=== PATIENT | female | born 1985 | race African-American/Black ===

== ENCOUNTER 2020-03-22 19:50 | Emergency (ER) | payer MEDICARE, MEDICAID ==
[~2020-03-22] VITALS: Ht 162.6 cm; Wt 52.0 kg
[2020-03-22] MEDS ORDERED: MORPHINE SULFATE 4 MG/ML VIAL. IV ONE ×2 (20:30→22:00)
[2020-03-22] MEDS ORDERED: ONDANSETRON PF 4 MG/2 ML VIAL. IVP ONE (20:30)
[2020-03-22] MEDS ORDERED: IV NORMAL SALINE 1000ML BAG 1,000 ML IV ONE (20:30)
[2020-03-22 20:45] LABS: BASO # 0.2 x10^3/uL (0.0-0.2); BASO % 2 % (0-3); EOS # 0.3 x10^3/uL (0.0-0.7); EOS % 4 % (0-3); HEMATOCRIT 24.2 % (36.0-47.0); HEMOGLOBIN 8.5 g/dL (12.0-15.5); LYMPH # 1.4 x10^3/uL (1.0-4.8); LYMPH % 17 % (24-48); MEAN CORPUSCULAR HEMOGLOBIN 37 pg (25-35); MEAN CORPUSCULAR HGB CONC 35 g/dL (31-37); MEAN CORPUSCULAR VOLUME 104 fL (79-100); MONO # 1.2 x10^3/uL (0.0-1.1); MONO % 15 % (0-9); NEUT % 62 % (31-73); PLATELET COUNT 517 x10^3/uL (140-400); RED BLOOD COUNT 2.33 x10^6/uL (3.50-5.40); RED CELL DISTRIBUTION WIDTH 20.8 % (11.5-14.5); WHITE BLOOD COUNT 8.1 x10^3/uL (4.0-11.0)
[2020-03-22 20:56] LABS: PROTHROMBIN TIME PATIENT 14.4 SEC (11.7-14.0)
[2020-03-22] MEDS ORDERED: diphenhydrAMINE 50 MG/ML VIAL IVP ONE (21:00)
[2020-03-22 21:23] LABS: PLT ESTIMATE INCREASED (ADEQUATE)
[2020-03-22 21:26] LABS: ANISOCYTOSIS MOD; HOWELL-JOLLY BODIES PRESENT; PAPPENHEIMER BODIES PRESENT; POLYCHROMASIA SLIGHT; SICKLE CELLS FEW; TARGET CELLS FEW
[2020-03-22 21:36] LABS: CALCIUM 8.3 mg/dL (8.5-10.1); CREATININE 0.9 mg/dL (0.6-1.0); GFR 86.2; POTASSIUM 4.1 mmol/L (3.5-5.1)
[2020-03-22 21:42] LABS: ALBUMIN 4.1 g/dL (3.4-5.0); ALBUMIN/GLOBULIN RATIO 1.2 (1.0-1.7); TOTAL PROTEIN 7.6 g/dL (6.4-8.2)
--- NOTE | 2020-03-22 22:28 | RAD ---
Exam: Chest 2 views INDICATION: Chest pain TECHNIQUE: Frontal and lateral views the chest Comparisons: None FINDINGS: The cardiomediastinal silhouette and pulmonary vessels are within normal limits. The lung and pleural spaces are clear. IMPRESSION: No acute cardiopulmonary process. Electronically signed by: Atif Velasquez MD (03/22/2020 10:25 PM) [id number]
[2020-03-22 22:53] VITALS: BP 97/53
--- NOTE | 2020-03-22 23:04 | PHYS DOC ---
Past Medical History Past Medical History: Sickle Cell Disease Additional Past Medical Histor: stroke x 2 Past Surgical History: Hip Replacement Additional Past Surgical Histo: brain shunt, hip replacement x 2 Smoking Status: Never Smoker Alcohol Use: None General Adult EDM: Chief Complaint: PAIN CONTROL HPI: HPI: Patient is a 34 year old female who presents to the ED with a chief complaint of sickle cell pain. Patient states that the pain started earlier today. Patient states that the pain is in her chest, bilateral lower extremities. Patient states that she takes hydrocodone for her pain and is seen at the sickle cell clinic in [place]. Patient denies fever, chills, nausea, vomiting, diarrhea, shortness of breath. Patient denies exposure to anyone with c oronavirus. Review of Systems: Review of Systems: Constitutional: Denies fever or chills. [] Eyes: Denies change in visual acuity. [] HENT: Denies nasal congestion or sore throat. [] Respiratory: Complains of chest pain [] Cardiovascular: Denies chest pain or edema. [] GI: Denies abdominal pain, nausea, vomiting, bloody stools or diarrhea. [] : Denies dysuria. [] Musculoskeletal: Complains of bilateral lower extremity pain Neurologic: Denies headache, focal weakness or sensory changes. [] Heart Score: Risk Factors: Risk Factors: DM, Current or recent (<one month) smoker, HTN, HLP, family history of CAD, obesity. Risk Scores: Score 0 - 3: 2.5% MACE over next 6 weeks - Discharge Home Score 4 - 6: 20.3% MACE over next 6 weeks - Admit for Clinical Observation Score 7 - 10: 72.7% MACE over next 6 weeks - Early Invasive Strategies Current Medications: Current Medications Medications (Trade) Dose Ordered Sig/Saul Start Time Stop Time Status Last Admin Dose Admin Diphenhydramine HCl (Benadryl) 25 mg 1X ONCE 03/22/20 21:00 03/22/20 21:01 DC 03/22/20 20:54 25 MG Morphine Sulfate (Morphine Sulfate) 4 mg 1X ONCE 03/22/20 22:00 03/22/20 22:01 DC 03/22/20 21:43 4 MG Ondansetron HCl (Zofran) 4 mg 1X ONCE 03/22/20 20:30 03/22/20 20:35 DC 03/22/20 20:42 4 MG Sodium Chloride 1,000 ml @ 1,000 mls/hr 1X ONCE 03/22/20 20:30 03/22/20 21:29 DC 03/22/20 20:42 1,000 MLS/HR Allergies: Allergies: Allergies Coded Allergies Type Severity Reaction Last Updated Verified No Known Drug Allergies 03/22/20 No Physical Exam: PE: Constitutional: Well developed, well nourished, no acute distress, non-toxic appearance. [] HENT: Normocephalic, atraumatic Eyes: EOMI Neck: Normal range of motion, Supple Cardiovascular:Heart rate regular rhythm Lungs & Thorax: Bilateral breath sounds clear to auscultation [] Abdomen: Bowel sounds normal, soft, no tenderness Extremities: No tenderness, ROM intact Neurologic: Alert and oriented X 3 Current Patient Data: Labs: Laboratory Tests Test 03/22/20 20:17 03/22/20 21:10 White Blood Count 8.1 x10^3/uL (4.0-11.0) Red Blood Count 2.34 x10^6/uL (3.50-5.70) L Hemoglobin 8.5 g/dL (12.0-15.5) L Hematocrit 24.2 % (36.0-47.0) L Mean Corpuscular Volume 104 fL (79-100) H Mean Corpuscular Hemoglobin 37 pg (25-35) H Mean Corpuscular Hemoglobin Concent 35 g/dL (31-37) Red Cell Distribution Width 20.8 % (11.5-14.5) H Platelet Count 517 x10^3/uL (140-400) H Neutrophils (%) (Auto) 62 % (31-73) Lymphocytes (%) (Auto) 17 % (24-48) L Monocytes (%) (Auto) 15 % (0-9) H Eosinophils (%) (Auto) 4 % (0-3) H Basophils (%) (Auto) 2 % (0-3) Neutrophils # (Auto) 5.0 x10^3/uL (1.8-7.7) Lymphocytes # (Auto) 1.4 x10^3/uL (1.0-4.8) Monocytes # (Auto) 1.2 x10^3/uL (0.0-1.1) H Eosinophils # (Auto) 0.3 x10^3/uL (0.0-0.7) Basophils # (Auto) 0.2 x10^3/uL (0.0-0.2) Platelet Estimate Increased (ADEQUATE) Polychromasia Slight Anisocytosis Mod Pappenheimer Bodies Present Sickle Cells Few Target Cells Few [place] Bodies Present Absolute Reticulocyte Count 0.078 x10^6/uL (0.020-0.120) Percent Reticulocyte Count 3.3 % (0.5-2.3) H Immature Reticulocyte Fraction 0.71 (0.20-0.60) H Prothrombin Time 14.4 SEC (11.7-14.0) H Prothrombin Time INR 1.2 (0.8-1.1) H Sodium Level 138 mmol/L (136-145) Potassium Level 4.1 mmol/L (3.5-5.1) Chloride Level 106 mmol/L (98-107) Carbon Dioxide Level 21 mmol/L (21-32) Anion Gap 11 (6-14) Blood Urea Nitrogen 13 mg/dL (7-20) Creatinine 0.9 mg/dL (0.6-1.0) Estimated GFR (Cockcroft-Gault) 86.2 BUN/Creatinine Ratio 14 (6-20) Glucose Level 99 mg/dL (70-99) Lactic Acid Level 0.9 mmol/L (0.4-2.0) Calcium Level 8.3 mg/dL (8.5-10.1) L Total Bilirubin 1.0 mg/dL (0.2-1.0) Aspartate Amino Transferase (AST) 61 U/L (15-37) H Alanine Aminotransferase (ALT) 50 U/L (14-59) Alkaline Phosphatase 143 U/L (46-116) H Lactate Dehydrogenase 583 U/L (81-234) H Total Protein 7.6 g/dL (6.4-8.2) Albumin 4.1 g/dL (3.4-5.0) Albumin/Globulin Ratio 1.2 (1.0-1.7) Lipase 109 U/L (73-393) Laboratory Tests 03/22/20 20:17 Laboratory Tests 03/22/20 21:10 Vital Signs: Vital Signs Date Time Temp Pulse Resp B/P (MAP) Pulse Ox O2 Delivery O2 Flow Rate FiO2 03/22/20 21:43 16 99 Room Air 03/22/20 21:30 88 03/22/20 19:50 98.7 108/67 (81) 98.7 EKG: EKG: [] Radiology/Procedures: Radiology/Procedures: [] Impression: CXR IMPRESSION: No acute cardiopulmonary process. Course & Med Decision Making: Course & Med Decision Making Pertinent Labs and Imaging studies reviewed. (See chart for details) Labs show that patient has chronic anemia. Chest x-ray does not show any acute injury or thoracic process. Reticulocyte count is not elevated. Patient is received 2 doses of morphine 4 mg IV. On recheck patient states that her pain is controlled. Patient refused EKG. Patient also does not want troponin to be drawn. Patient was to be discharged home for outpatient follow-up. Discussed results and plan of care with patient. Patient is instructed to follow up with PCP in one to 2 days. Appropriate discharge instructions given to patient to return to the ED or to seek immediate medical evaluation. Patient is instructed to return to the ED if symptoms worsen or if any concerns. Dragon Disclaimer: Dragmadelaine Disclaimer: This electronic medical record was generated, in whole or in part, using a voice recognition dictation system. Departure Departure Impression: Primary Impression: Sickle cell anemia with pain Disposition: HOME, SELF-CARE Condition: STABLE Referrals: NO PCP (PCP) Patient Instructions: Sickle Cell Anemia, Sickle Cell Pain Crisis Additional Instructions: Discussed results and plan of care with patient. Patient is instructed to follow up with PCP in one to 2 days. Appropriate discharge instructions given to patient to return to the ED or to seek immediate medical evaluation. Patient is instructed to return to the ED if symptoms worsen or if any concerns. Justicifation of Admission Dx: Justifications for Admission: Justification of Admission Dx: JOSH Sinclair DO Mar 22, 2020 23:04
== END 2020-03-22 23:20 | disposition home or self-care (01) ==
LOC: ER 19:50
DX: D57.00 Hb-SS disease with crisis, unspecified (principal); R07.89 Other chest pain; M79.604 Pain in right leg; M79.605 Pain in left leg
CPT/HCPCS: 36415; 71046; 80053; 83605; 83615; 83690; 85025; 85045; 85610; 96374; 96375; 96376; 99285; J1200; J2270; J2405; J7030

== ENCOUNTER 2020-03-23 07:15 | Emergency (ER) | payer MEDICARE, MEDICAID ==
[~2020-03-23] VITALS: Ht 162.6 cm; Wt 55.0 kg
[2020-03-23] MEDS ORDERED: IV NORMAL SALINE 1000ML BAG 1,000 ML IV ONE (08:30)
[2020-03-23] MEDS ORDERED: MORPHINE SULFATE 10 MG/ML VIAL. IV ONE ×2 (08:45→10:30)
--- NOTE | 2020-03-23 09:10 | PHYS DOC ---
Past Medical History Past Medical History: Sickle Cell Disease Additional Past Medical Histor: stroke x 2 Past Surgical History: Hip Replacement Additional Past Surgical Histo: brain shunt, hip replacement x 2 Smoking Status: Never Smoker Alcohol Use: Occasionally General Adult EDM: Chief Complaint: PAIN CONTROL HPI: HPI: Patient is a 34 year old female who presents with sickle cell pain crisis after the last couple of days. Patient was seen in the emergency room last night for the same pain. Pain improved after treatment in the emergency room. She sat in the waiting room for several hours waiting for a cab but never came. She states that because of her sickle cell pain she gets very stiff and painful when she has to sit for long periods of time and gets cold. She has been taking her medications as prescribed. She denies any new symptoms. She did turn down an EKG last night but states that she is happy to get one today. Review of Systems: Review of Systems: General: Denies fever, chills, sweats, fatigue Eyes: Denies drainage, blurred vision, eye redness HENT: Denies rhinorrhea, sore throat, earache Respiratory: Denies cough, shortness of breath, wheezing Cardiac: Denies edema, palpitations. Reports chest pain GI: Denies abdominal pain, Nausea, vomiting MSK: Denies back pain, neck pain reports hip pain Skin: Denies rash, jaundice Neuro: Denies headache, dizziness Psychiatric: Denies SI/HI Heart Score: Risk Factors: Risk Factors: DM, Current or recent (<one month) smoker, HTN, HLP, family history of CAD, obesity. Risk Scores: Score 0 - 3: 2.5% MACE over next 6 weeks - Discharge Home Score 4 - 6: 20.3% MACE over next 6 weeks - Admit for Clinical Observation Score 7 - 10: 72.7% MACE over next 6 weeks - Early Invasive Strategies Current Medications: Current Medications Medications (Trade) Dose Ordered Sig/Saul Start Time Stop Time Status Last Admin Dose Admin Morphine Sulfate (Morphine Sulfate) 5 mg 1X ONCE 03/23/20 08:45 03/23/20 08:46 DC Sodium Chloride 1,000 ml @ 40 mls/hr 1X ONCE 03/23/20 08:30 03/24/20 09:29 Allergies: Allergies: Allergies Coded Allergies Type Severity Reaction Last Updated Verified No Known Drug Allergies 03/22/20 No Physical Exam: PE: General: Awake, alert, NAD. Well Nourished, well hydrated. Cooperative HEENT: Atraumatic, EOMI, PERRL, airway patent, moist oral mucosa Neck: Supple, trachea midline Respiratory: CTA bilaterally, normal effort, no wheezing/crackles CV: RRR, no murmur, cap refill <2 GI: Soft, nondistended, nontender, no masses MSK: No obvious deformities Skin: Warm, dry, intact Neuro: A&O x3, speech NL, sensory and motor grossly intact, no focal deficits Psych: Normal affect, normal mood, not suicidal or homicidal Current Patient Data: Vital Signs: Vital Signs Date Time Temp Pulse Resp B/P (MAP) Pulse Ox O2 Delivery O2 Flow Rate FiO2 720 08:07 97.5 91 18 115/56 (75) 98 Room Air 97.5 EKG: EKG: [] Radiology/Procedures: Radiology/Procedures: [] Course & Med Decision Making: Course & Med Decision Making Pertinent Labs and Imaging studies reviewed. (See chart for details) Patient is a 34-year-old female with a past medical history of sickle cell who presents to the Emergency Room complaining of sickle cell pain consistent with a sickle cell crisis. On exam, patient is well-appearing. Patient is having pain in her hips and chest. Patient does have chest pain and will need a chest x-ray and EKG. Patient does not have priapism, focal neurologic deficits, fever, hypoxia, hypotension. CBC, retic count, CMP, UA were ordered to evaluate for aplastic crisis and precipitating factors of a crisis including infection, acidosis, dehydration. Patient was given morphine and fluids for symptoms upon arrival. Patient has had 2 emergency Room visits for sickle cell crisis in the last year. Work up was reviewed and reveals stable labs. Hemoglobin is slightly lower but this is likely due to the fluid she received last night and this morning. On reevaluation, pain is better. Patient is requesting IV Benadryl and multiple doses of pain medication. I have discussed with her that I will give her oral Benadryl and 1 more dose of pain medicine. Patient does not appear to be in any acute distress. Patient's test results and vitals while in the ED were fully reviewed and discussed with the patient. Patient is stable and at this time does not need admission to the hospital. We have discussed strict return precautions and the importance of following up with their Primary Care Physician. Patient stated understanding and was given an opportunity to ask any questions. Patient is in agreement with plan. Jannet Disclaimer: Jannet Disclaimer: This electronic medical record was generated, in whole or in part, using a voice recognition dictation system. Departure Departure Impression: Primary Impression: Sickle cell anemia Disposition: HOME, SELF-CARE Condition: GOOD Referrals: NO PCP (PCP) Patient Instructions: Sickle Cell Pain Crisis Justicifation of Admission Dx: Justifications for Admission: Justification of Admission Dx: No LEANA TOVAR MD Mar 23, 2020 09:10
[2020-03-23 10:07] LABS: BASO # 0.1 x10^3/uL (0.0-0.2); BASO % 2 % (0-3); EOS # 0.2 x10^3/uL (0.0-0.7); EOS % 3 % (0-3); HEMATOCRIT 22.9 % (36.0-47.0); HEMOGLOBIN 7.9 g/dL (12.0-15.5); LYMPH # 1.3 x10^3/uL (1.0-4.8); LYMPH % 18 % (24-48); MEAN CORPUSCULAR HEMOGLOBIN 36 pg (25-35); MEAN CORPUSCULAR HGB CONC 34 g/dL (31-37); MEAN CORPUSCULAR VOLUME 105 fL (79-100); MONO # 0.9 x10^3/uL (0.0-1.1); MONO % 13 % (0-9); NEUT # 4.7 x10^3/uL (1.8-7.7); NEUT % 64 % (31-73); PLATELET COUNT 459 x10^3/uL (140-400); RED BLOOD COUNT 2.19 x10^6/uL (3.50-5.40); RED CELL DISTRIBUTION WIDTH 20.7 % (11.5-14.5); WHITE BLOOD COUNT 7.3 x10^3/uL (4.0-11.0)
[2020-03-23] MEDS ORDERED: diphenhydrAMINE HCL 25 MG CAPSULE PO ONE (11:15)
[2020-03-23 11:52] LABS: PLT ESTIMATE INCREASED (ADEQUATE)
[2020-03-23 12:01] VITALS: BP 98/53
[2020-03-23 12:02] LABS: ANISOCYTOSIS PRESENT; HOWELL-JOLLY BODIES PRESENT; HYPOCHROMIA SLIGHT; PAPPENHEIMER BODIES PRESENT; POIKILOCYTOSIS PRESENT; SICKLE CELLS PRESENT; TARGET CELLS PRESENT
--- NOTE | 2020-03-25 07:01 | EKG ---
[facility] [address] [place] [address] Test Date: 2020-03-23 Test Time: 08:34:29 Pat Name: ROMA AGUILAR Department: Room: Gender: F Heeler Machine: : 1985 Requested By: LEANA TOVAR Order Number: [id number] Reading MD: Measurements Intervals [place] Rate: 78 P: 58 MO: 122 QRS: 55 QRSD: 86 T: 55 QT: 408 QTc: 469 Interpretive Statements SINUS RHYTHM QRS(T) CONTOUR ABNORMALITY CONSIDER ANTEROLATERAL MYOCARDIAL DAMAGE T ABNORMALITY IN ANTEROSEPTAL LEADS ABNORMAL ECG RI6.01 No previous ECG available for comparison
== END 2020-03-23 12:01 | disposition home or self-care (01) ==
LOC: ER 07:15
DX: D57.1 Sickle-cell disease without crisis (principal); R07.89 Other chest pain; M25.551 Pain in right hip; M25.552 Pain in left hip
CPT/HCPCS: 36415; 85025; 85045; 93005; 96374; 96376; 99284; J2270; J7030; Q0163

== ENCOUNTER 2020-04-12 11:12 | Observation (INO) | payer MEDICARE, MEDICAID ==
[~2020-04-12] VITALS: Ht 162.6 cm; Wt 56.4 kg
[2020-04-12] MEDS ORDERED: MORPHINE SULFATE 4 MG/ML VIAL. IV ONE ×2 (12:15→14:45)
[2020-04-12] MEDS ORDERED: ONDANSETRON PF 4 MG/2 ML VIAL. IVP ONE (12:15)
[2020-04-12] MEDS ORDERED: diphenhydrAMINE 50 MG/ML VIAL IVP ONE ×2 (12:15→14:45)
[2020-04-12 12:24] LABS: BASO # 0.1 x10^3/uL (0.0-0.2); BASO % 1 % (0-3); CALCIUM 8.6 mg/dL (8.5-10.1); CREATININE 0.8 mg/dL (0.6-1.0); EOS # 0.2 x10^3/uL (0.0-0.7); EOS % 3 % (0-3); GFR 98.8; HEMOGLOBIN 7.3 g/dL (12.0-15.5); LYMPH # 1.9 x10^3/uL (1.0-4.8); LYMPH % 24 % (24-48); MEAN CORPUSCULAR HEMOGLOBIN 39 pg (25-35); MEAN CORPUSCULAR HGB CONC 36 g/dL (31-37); MEAN CORPUSCULAR VOLUME 109 fL (79-100); MONO % 13 % (0-9); NEUT # 4.6 x10^3/uL (1.8-7.7); NEUT % 58 % (31-73); PLATELET COUNT 393 x10^3/uL (140-400); POTASSIUM 3.8 mmol/L (3.5-5.1); RED BLOOD COUNT 1.88 x10^6/uL (3.50-5.40); RED CELL DISTRIBUTION WIDTH 26.7 % (11.5-14.5); WHITE BLOOD COUNT 7.9 x10^3/uL (4.0-11.0)
[2020-04-12 12:30] LABS: ALBUMIN 3.8 g/dL (3.4-5.0); ALBUMIN/GLOBULIN RATIO 1.1 (1.0-1.7); TOTAL BILIRUBIN 0.6 mg/dL (0.2-1.0); TOTAL PROTEIN 7.3 g/dL (6.4-8.2)
[2020-04-12 12:40] LABS: HEMATOCRIT 20.5 % (36.0-47.0)
[2020-04-12] MEDS ORDERED: diphenhydrAMINE 50 MG/ML VIAL IM ONE (12:45)
[2020-04-12] MEDS ORDERED: MORPHINE SULFATE 4 MG/ML VIAL. IM ONE ×2 (12:45→14:00)
[2020-04-12] MEDS ORDERED: ONDANSETRON ODT 4 MG TAB.RAPDIS. PO ONE (12:45)
--- NOTE | 2020-04-12 13:25 | PHYS DOC ---
Past Medical History Past Medical History: Sickle Cell Disease Additional Past Medical Histor: stroke x 2 Past Surgical History: Hip Replacement Additional Past Surgical Histo: brain shunt, hip replacement x 2 Smoking Status: Never Smoker Alcohol Use: Occasionally General Adult EDM: Chief Complaint: PAIN CONTROL HPI: HPI: Patient is a 34 year old female who presents with generalized body aches and pains that she associates with her normal sickle cell pains, patient states that she has not taken anything for pain today, she rates her pain a 10/10 pain scale. Patient reports she woke up with her pain this morning noting that it was mostly in her thighs and low back, patient states this is where her sickle cell pain usually manifests from. Patient denies any fever or chills, visual changes, nasal congestion, cough or shortness of breath. She denies any chest pain, or peripheral edema. Patient denies any abdominal pain, nausea, vomiting, diarrhea, constipation. Patient denies any problems urinating, patient denies any pain in her joints. The skin rashes, headaches, focal weaknesses or sensory changes. Patient denies any swelling of her glands, denies any recent life changes depressions or anxieties, patient denies any homicidal suicidal ideations. Patient states that she gets some pain control she should be okay. Review of Systems: Review of Systems: Constitutional: Denies fever or chills. Patient denies exposure to COVID-19. Eyes: Denies change in visual acuity. HENT: Denies nasal congestion or sore throat. Respiratory: Denies cough or shortness of breath. Cardiovascular: Denies chest pain or edema. GI: Denies abdominal pain, nausea, vomiting, bloody stools or diarrhea. : Denies dysuria. Musculoskeletal: Patient denies pain in her joints, however does complain of generalized body aches that she associates with her sickle cell pain patient states is mostly in her low back and thighs. Integument: Denies rash. Neurologic: Denies headache, focal weakness or sensory changes. Lymphatic: Denies swollen glands. Psychiatric: Denies depression or anxiety. Patient denies HI SI. Heart Score: Risk Factors: Risk Factors: DM, Current or recent (<one month) smoker, HTN, HLP, family history of CAD, obesity. Risk Scores: Score 0 - 3: 2.5% MACE over next 6 weeks - Discharge Home Score 4 - 6: 20.3% MACE over next 6 weeks - Admit for Clinical Observation Score 7 - 10: 72.7% MACE over next 6 weeks - Early Invasive Strategies Family History: Family History: Patient denies any family history significant to this visit. Current Medications: Current Medications Medications (Trade) Dose Ordered Sig/Saul Start Time Stop Time Status Last Admin Dose Admin Diphenhydramine HCl (Benadryl) 25 mg 1X ONCE 04/12/20 12:45 04/12/20 12:46 DC 04/12/20 12:49 25 MG Morphine Sulfate (Morphine Sulfate) 4 mg 1X ONCE 04/12/20 12:45 04/12/20 12:46 DC 04/12/20 12:49 4 MG Ondansetron HCl (Zofran Odt) 4 mg 1X ONCE 04/12/20 12:45 04/12/20 12:46 DC 04/12/20 12:48 4 MG Ondansetron HCl (Zofran) 4 mg 1X ONCE 04/12/20 12:15 04/12/20 12:42 DC Allergies: Allergies: Allergies Coded Allergies Type Severity Reaction Last Updated Verified No Known Drug Allergies 03/22/20 No Physical Exam: PE: Constitutional: Well developed, well nourished, no acute distress, non-toxic appearance. Patient's complaints of pain are far out of proportion to physical findings. HENT: Normocephalic, atraumatic, bilateral external ears normal, oropharynx moist, no oral exudates, nose normal. Eyes: PERRLA, EOMI, conjunctiva normal, no discharge. Pupils 4 mm. Neck: Normal range of motion, no tenderness, supple, no stridor. Cardiovascular:Heart rate regular rhythm, no murmur heart sounds S1-S2, no abnormalities per auscultation Lungs & Thorax: Bilateral breath sounds clear to auscultation all lung heck. Abdomen: Bowel sounds normal all 4 quadrants, soft, no tenderness, no masses, no pulsatile masses. Skin: Warm, dry, no erythema, no rash. Back: No tenderness, no CVA tenderness. Extremities: No tenderness to palpation, no cyanosis, no clubbing, ROM intact, patient does report pain when moving extremities, no edema. Neurologic: Alert and oriented X 3, normal motor function, normal sensory function, no focal deficits noted. Psychologic: Affect normal, judgement normal, mood normal. Current Patient Data: Labs: Laboratory Tests Test 04/12/20 11:45 04/12/20 12:10 POC Urine HCG, Qualitative Hcg negative (Negative) White Blood Count 7.9 x10^3/uL (4.0-11.0) Red Blood Count 1.88 x10^6/uL (3.50-5.40) L Hemoglobin 7.3 g/dL (12.0-15.5) L Hematocrit 20.5 % (36.0-47.0) *L Mean Corpuscular Volume 109 fL (79-100) H Mean Corpuscular Hemoglobin 39 pg (25-35) H Mean Corpuscular Hemoglobin Concent 36 g/dL (31-37) Red Cell Distribution Width 26.7 % (11.5-14.5) H Platelet Count 393 x10^3/uL (140-400) Neutrophils (%) (Auto) 58 % (31-73) Lymphocytes (%) (Auto) 24 % (24-48) Monocytes (%) (Auto) 13 % (0-9) H Eosinophils (%) (Auto) 3 % (0-3) Basophils (%) (Auto) 1 % (0-3) Neutrophils # (Auto) 4.6 x10^3/uL (1.8-7.7) Lymphocytes # (Auto) 1.9 x10^3/uL (1.0-4.8) Monocytes # (Auto) 1.0 x10^3/uL (0.0-1.1) Eosinophils # (Auto) 0.2 x10^3/uL (0.0-0.7) Basophils # (Auto) 0.1 x10^3/uL (0.0-0.2) Platelet Estimate Pending Sodium Level 141 mmol/L (136-145) Potassium Level 3.8 mmol/L (3.5-5.1) Chloride Level 106 mmol/L (98-107) Carbon Dioxide Level 25 mmol/L (21-32) Anion Gap 10 (6-14) Blood Urea Nitrogen 7 mg/dL (7-20) Creatinine 0.8 mg/dL (0.6-1.0) Estimated GFR (Cockcroft-Gault) 98.8 BUN/Creatinine Ratio 9 (6-20) Glucose Level 94 mg/dL (70-99) Calcium Level 8.6 mg/dL (8.5-10.1) Total Bilirubin 0.6 mg/dL (0.2-1.0) Aspartate Amino Transferase (AST) 29 U/L (15-37) Alanine Aminotransferase (ALT) 26 U/L (14-59) Alkaline Phosphatase 115 U/L (46-116) Total Protein 7.3 g/dL (6.4-8.2) Albumin 3.8 g/dL (3.4-5.0) Albumin/Globulin Ratio 1.1 (1.0-1.7) Laboratory Tests 04/12/20 12:10 Laboratory Tests 04/12/20 12:10 Vital Signs: Vital Signs Date Time Temp Pulse Resp B/P (MAP) Pulse Ox O2 Delivery O2 Flow Rate FiO2 04/12/20 12:49 16 97 Room Air 04/12/20 11:15 98.2 91 129/67 (87) 98.2 EKG: EKG: [] Radiology/Procedures: Radiology/Procedures: [] Course & Med Decision Making: Course & Med Decision Making Pertinent Labs and Imaging studies reviewed. (See chart for details) 34-year-old female with history of sickle cell disease presents to the ER with complaints of body aches and pains consistent with her sickle cell. Patient is complaints of pain are far out of proportion to physical findings. Patient initially stated that she wanted to be admitted to the hospital, stating that she used to be seen at [facility] and has recently changed her sickle cell care to [facility]. Patient was giving IM morphine and Benadryl for pain, patient states her pain about 10-10 did not decrease with tho se medicines. Upon reexamination of the patient and discussed with possible admit for pain control, patient stated that she is out of her 15 mg OxyContin's at home and states if she was given a prescription she would be able to go home and manage her pain, seeing her sickle cell physician at [place] on Tuesday. Discussed with patient the usage of the emergency department for pain control, and that patient should follow-up with her pain management/sickle cell physician for these types of problems. Discharge plan to send home with 10 count 15 mg OxyContin's, have patient follow-up with her sickle cell physician at [facility] on Tuesday, patient was amenable to this discharge planning, had no further questions or concerns patient discharged home. Upon completing discharge instructions, I was approached by ED nurse who said patient no longer wants to be discharged home and wanted speak to me. Upon reexamination of patient, patient was agreeable to allow me to start her IV and give her fluids with the plan to discharge to home after a 1000 cc bolus of normal saline and additional 4 mg of morphine and an additional 25 mg of Benadryl were given IV. However, patient states that her pain remains a 10 out of 10 and she now wishes to be admitted to the hospital. Discussed this case with HIM[facility] Dr. Fulton who was agreeable to admit patient under observation and pain control. Jannet Disclaimer: Jannet Disclaimer: This electronic medical record was generated, in whole or in part, using a voice recognition dictation system. Departure Departure Impression: Primary Impression: Sickle cell anemia with pain Additional Impression: Prescription refill Disposition: HOME, SELF-CARE Condition: GOOD Referrals: NO PCP (PCP) Patient Instructions: Sickle Cell Pain Crisis Justicifation of Admission Dx: Justifications for Admission: Justification of Admission Dx: Yes Comments: INTRACTABLE SICKLE CELL PAIN KELLEN VILLATORO APRN Apr 12, 2020 13:25
[2020-04-12 14:40] LABS: PLT ESTIMATE ADEQUATE (ADEQUATE)
[2020-04-12 14:41] LABS: ANISOCYTOSIS MARKED; MICROCYTOSIS SLIGHT
[2020-04-12 14:44] LABS: POLYCHROMASIA OCCASIONAL
[2020-04-12 14:45] LABS: SCHISTOCYTES OCC; SICKLE CELLS MOD; TARGET CELLS OCC
[2020-04-12] MEDS ORDERED: IV NORMAL SALINE 1000ML BAG 1,000 ML IV ONE (14:45)
[2020-04-12 14:46] LABS: POIKILOCYTOSIS MOD
[2020-04-12] MEDS ORDERED: DOCUSATE SODIUM 100 MG CAPSULE. PO PRN (17:15)
[2020-04-12] MEDS ORDERED: cloNIDine HCL 0.1 MG TABLET PO PRN (17:15)
[2020-04-12] MEDS ORDERED: ACETAMINOPHEN 325 MG TABLET. PO PRN (17:15)
[2020-04-12] MEDS ORDERED: ONDANSETRON PF 4 MG/2 ML VIAL. IV PRN ×2 (17:15)
[2020-04-12] MEDS ORDERED: guaiFENesin ORAL 200 MG/10 ML LIQUID. PO PRN (17:15)
[2020-04-12] MEDS ORDERED: IV RINGERS,LACTATED 1000ML 1,000 ML IV ONE (17:15)
[2020-04-12] MEDS ORDERED: ALBUTEROL SULFATE 2.5 MG/3 ML NEBU. NEB PRN (17:15)
[2020-04-12] MEDS ORDERED: CALAMINE/ZINC OXIDE TOPICAL SUSPENSION 177ML BOTTLE. TP PRN (19:15)
[2020-04-12] MEDS ORDERED: hydrOXYzine 10 MG TABLET PO PRN (19:15)
[2020-04-12] MEDS ORDERED: diphenhydrAMINE ORAL ELIXIR 12.5 MG/5 ML ML PO ONE (19:15)
[2020-04-12] MEDS: MORPHINE SULFATE 4 MG/ML VIAL. IV PRN ×2 (19:27→21:25)
[2020-04-12 20:33] VITALS: BP 114/66
[2020-04-12] MEDS ORDERED: ENOXAPARIN 40 MG/0.4 ML SYRINGE. SQ SCH (21:00)
[2020-04-12] MEDS ORDERED: ZOLPIDEM 5 MG TABLET. PO PRN (21:00)
[2020-04-12] MEDS ORDERED: ASPI81TA59 PO (21:04)
[2020-04-12] MEDS ORDERED: FLUO40CA9 PO (21:04)
[2020-04-12] MEDS ORDERED: HYDR500C16 PO (21:04)
[2020-04-12] MEDS ORDERED: VITA1TAB31 PO (21:04)
[2020-04-12] MEDS ORDERED: MULT-735 PO (21:04)
[2020-04-12] MEDS ORDERED: TRAZ-123 PO (21:04)
[2020-04-12] MEDS ORDERED: OXYC20TA PO (21:04)
--- NOTE | 2020-04-12 21:43 | PDOC1 ---
History and Physical Date of Admission Date of Admission 04/12/2020 Identification/Chief Complaint Chief Complaint I am hurting all over Source Source: Chart review, Patient History of Present Illness History of Present Illness Patient is a 34-year-old female with past medical history of sickle cell anemia who has been in her usual state of health until today when she woke up and had excruciating pain that she describes as "all over". The patient denies any recent infections no cold-like symptoms she denies chest pain no shortness of breath has been reported, no palpitations no nausea vomiting or diarrhea has been reported. Of note is that the patient apparently is in the process of changing care from his pipeman from 1 institution to another the details are certainly obscure. Patient is quite adamant about her pain medications and how she feels like her doctors are not understanding how to take care of her pain. She seems to be in no acute distress she has gotten IV fluids in the [facility] department certainly does not look like an acute chest syndrome due to her uncontrolled pain we have been asked to admit the patient for treatment. She denies sick contacts no strokelike symptoms and no other alarming signs are evident at this time. She is currently on Hydrea and also chelation therapy for iron overload. Past Medical History Past Medical History Sickle cell anemia Chronic pain syndrome Chronic narcotic use Past Surgical History Past Surgical History: Total hip replacement Family History Family History: No Significant, Diabetes Social History Smoke: No ALCOHOL: none Drugs: None Current Problem List Problem List Problems Medical Problems: (1) Prescription refill Status: Acute (2) Sickle cell anemia with pain Status: Acute Current Medications Current Medications Current Medications Medications (Trade) Dose Ordered Sig/Saul Start Time Stop Time Status Last Admin Dose Admin Acetaminophen (Tylenol) 650 mg PRN Q4HRS PRN 04/12/20 17:15 Albuterol Sulfate (Ventolin Neb Soln) 2.5 mg PRN Q4HRS PRN 04/12/20 17:15 Calamine (Calamine Lotion) 1 elissa PRN Q4HRS PRN 04/12/20 19:15 Clonidine HCl (Catapres) 0.1 mg PRN Q6HRS PRN 04/12/20 17:15 Diphenhydramine HCl (Benadryl Oral Elixir) 12.5 mg 1X ONCE 04/12/20 19:15 04/12/20 19:16 DC 04/12/20 19:26 12.5 MG Diphenhydramine HCl (Benadryl) 25 mg 1X ONCE 04/12/20 14:45 04/12/20 14:47 DC 04/12/20 14:59 25 MG Docusate Sodium (Colace) 100 mg PRN BID PRN 04/12/20 17:15 Enoxaparin Sodium (Lovenox 40mg Syringe) 40 mg Q24H 04/12/20 21:00 Guaifenesin (Robitussin) 200 mg PRN Q4HRS PRN 04/12/20 17:15 Hydroxyzine HCl (Atarax) 10 mg PRN Q6HRS PRN 04/12/20 19:15 Morphine Sulfate (Morphine Sulfate) 4 mg PRN Q2HR PRN 04/12/20 17:15 04/13/20 17:14 04/12/20 21:25 4 MG Ondansetron HCl (Zofran Odt) 4 mg 1X ONCE 04/12/20 12:45 04/12/20 12:46 DC 04/12/20 12:48 4 MG Ondansetron HCl (Zofran) 4 mg PRN Q8HRS PRN 04/12/20 17:15 04/13/20 17:14 Ringer's Solution 1,000 ml @ 125 mls/hr 1X ONCE 04/12/20 17:15 04/13/20 01:14 04/12/20 17:15 125 MLS/HR Sodium Chloride 1,000 ml @ 1,000 mls/hr 1X ONCE 04/12/20 14:45 04/12/20 15:44 DC 04/12/20 14:59 1,000 MLS/HR Zolpidem Tartrate (Ambien) 5 mg PRN QHS PRN 04/12/20 21:00 04/12/20 21:25 5 MG Allergies Allergies Allergies Coded Allergies Type Severity Reaction Last Updated Verified No Known Drug Allergies 03/22/20 No ROS Review of System CONSTITUTIONAL: No fever or chills EYES: No recent changes SKIN: No rash or itching CARDIOVASCULAR: No chest pain, syncope, palpitations, or edema RESPIRATORY: No SOB or cough GASTROINTESTINAL: No nausea, vomiting or abdominal pain NEUROLOGICAL: No headaches or weakness ENDOCRINE: No cold or heat intolerance GENITOURINARY: No urgency or frequency of urination MUSCULOSKELETAL: No back pain or joint pain LYMPHATICS: No enlarged lymph nodes PSYCHIATRIC: No anxiety or depression Physical Exam Physical Exam GEN.: No apparent distress. Alert and oriented. HEENT: Head is normocephalic, atraumatic NECK: Supple. LUNGS: Clear to auscultation. HEART: RRR, S1, S2 present. Peripheral pulses intact ABDOMEN: Soft, nontender. Positive bowel sounds. EXTREMITIES: Without any cyanosis. NEUROLOGIC: Normal speech, normal tone PSYCHIATRIC: Normal affect, normal mood. SKIN: No ulcerations Vitals Vitals Vital Signs Date Time Temp Pulse Resp B/P (MAP) Pulse Ox O2 Delivery O2 Flow Rate FiO2 04/12/20 21:25 20 Room Air 04/12/20 20:33 97.5 86 114/66 (82) 99 97.5 Labs Labs Laboratory Tests Test 04/12/20 11:45 04/12/20 12:10 Bedside Urine HCG, Qualitative Hcg negative (Negative) White Blood Count 7.9 x10^3/uL (4.0-11.0) Red Blood Count 1.88 x10^6/uL (3.50-5.40) Hemoglobin 7.3 g/dL (12.0-15.5) Hematocrit 20.5 % (36.0-47.0) Mean Corpuscular Volume 109 fL (79-100) Mean Corpuscular Hemoglobin 39 pg (25-35) Mean Corpuscular Hemoglobin Concent 36 g/dL (31-37) Red Cell Distribution Width 26.7 % (11.5-14.5) Platelet Count 393 x10^3/uL (140-400) Neutrophils (%) (Auto) 58 % (31-73) Lymphocytes (%) (Auto) 24 % (24-48) Monocytes (%) (Auto) 13 % (0-9) Eosinophils (%) (Auto) 3 % (0-3) Basophils (%) (Auto) 1 % (0-3) Neutrophils # (Auto) 4.6 x10^3/uL (1.8-7.7) Lymphocytes # (Auto) 1.9 x10^3/uL (1.0-4.8) Monocytes # (Auto) 1.0 x10^3/uL (0.0-1.1) Eosinophils # (Auto) 0.2 x10^3/uL (0.0-0.7) Basophils # (Auto) 0.1 x10^3/uL (0.0-0.2) Platelet Estimate Adequate (ADEQUATE) Polychromasia Occasional Poikilocytosis Mod Anisocytosis Marked Microcytosis Slight Macrocytosis Slight Sickle Cells Mod Target Cells Occ Schistocytes Occ Sodium Level 141 mmol/L (136-145) Potassium Level 3.8 mmol/L (3.5-5.1) Chloride Level 106 mmol/L (98-107) Carbon Dioxide Level 25 mmol/L (21-32) Anion Gap 10 (6-14) Blood Urea Nitrogen 7 mg/dL (7-20) Creatinine 0.8 mg/dL (0.6-1.0) Estimated GFR (Cockcroft-Gault) 98.8 BUN/Creatinine Ratio 9 (6-20) Glucose Level 94 mg/dL (70-99) Calcium Level 8.6 mg/dL (8.5-10.1) Total Bilirubin 0.6 mg/dL (0.2-1.0) Aspartate Amino Transf (AST/SGOT) 29 U/L (15-37) Alanine Aminotransferase (ALT/SGPT) 26 U/L (14-59) Alkaline Phosphatase 115 U/L (46-116) Total Protein 7.3 g/dL (6.4-8.2) Albumin 3.8 g/dL (3.4-5.0) Albumin/Globulin Ratio 1.1 (1.0-1.7) Laboratory Tests Test 04/12/20 11:45 04/12/20 12:10 Bedside Urine HCG, Qualitative Hcg negative (Negative) White Blood Count 7.9 x10^3/uL (4.0-11.0) Red Blood Count 1.88 x10^6/uL (3.50-5.40) Hemoglobin 7.3 g/dL (12.0-15.5) Hematocrit 20.5 % (36.0-47.0) Mean Corpuscular Volume 109 fL (79-100) Mean Corpuscular Hemoglobin 39 pg (25-35) Mean Corpuscular Hemoglobin Concent 36 g/dL (31-37) Red Cell Distribution Width 26.7 % (11.5-14.5) Platelet Count 393 x10^3/uL (140-400) Neutrophils (%) (Auto) 58 % (31-73) Lymphocytes (%) (Auto) 24 % (24-48) Monocytes (%) (Auto) 13 % (0-9) Eosinophils (%) (Auto) 3 % (0-3) Basophils (%) (Auto) 1 % (0-3) Neutrophils # (Auto) 4.6 x10^3/uL (1.8-7.7) Lymphocytes # (Auto) 1.9 x10^3/uL (1.0-4.8) Monocytes # (Auto) 1.0 x10^3/uL (0.0-1.1) Eosinophils # (Auto) 0.2 x10^3/uL (0.0-0.7) Basophils # (Auto) 0.1 x10^3/uL (0.0-0.2) Platelet Estimate Adequate (ADEQUATE) Polychromasia Occasional Poikilocytosis Mod Anisocytosis Marked Microcytosis Slight Macrocytosis Slight Sickle Cells Mod Target Cells Occ Schistocytes Occ Sodium Level 141 mmol/L (136-145) Potassium Level 3.8 mmol/L (3.5-5.1) Chloride Level 106 mmol/L (98-107) Carbon Dioxide Level 25 mmol/L (21-32) Anion Gap 10 (6-14) Blood Urea Nitrogen 7 mg/dL (7-20) Creatinine 0.8 mg/dL (0.6-1.0) Estimated GFR (Cockcroft-Gault) 98.8 BUN/Creatinine Ratio 9 (6-20) Glucose Level 94 mg/dL (70-99) Calcium Level 8.6 mg/dL (8.5-10.1) Total Bilirubin 0.6 mg/dL (0.2-1.0) Aspartate Amino Transf (AST/SGOT) 29 U/L (15-37) Alanine Aminotransferase (ALT/SGPT) 26 U/L (14-59) Alkaline Phosphatase 115 U/L (46-116) Total Protein 7.3 g/dL (6.4-8.2) Albumin 3.8 g/dL (3.4-5.0) Albumin/Globulin Ratio 1.1 (1.0-1.7) VTE Prophylaxis Ordered VTE Prophylaxis Devices: No VTE Pharmacological Prophylaxi: Yes Assessment/Plan Assessment/Plan Sickle cell anemia Chronic pain syndrome Chronic narcotic use Plan LR Pain management Resume home medications once available for review Reassess in the a.m. Hopefully discharge soon once her pain is better controlled DVT prophylaxis with SCDs Justicifation of Admission Dx: Justifications for Admission: Justification of Admission Dx: Yes VIVIEN BRUCE MD Apr 12, 2020 21:43
[2020-04-12 23:00] VITALS: BP 109/61
[2020-04-13] MEDS: MORPHINE SULFATE 4 MG/ML VIAL. IV PRN ×3 (00:28→09:17)
[2020-04-13 03:17] VITALS: BP 114/68
[2020-04-13 07:59] VITALS: BP 99/59
[2020-04-13 09:38] LABS: BASO # 0.1 x10^3/uL (0.0-0.2); BASO % 1 % (0-3); EOS # 0.2 x10^3/uL (0.0-0.7); EOS % 3 % (0-3); HEMATOCRIT 21.5 % (36.0-47.0); HEMOGLOBIN 7.4 g/dL (12.0-15.5); LYMPH # 1.2 x10^3/uL (1.0-4.8); LYMPH % 15 % (24-48); MEAN CORPUSCULAR HEMOGLOBIN 38 pg (25-35); MEAN CORPUSCULAR HGB CONC 34 g/dL (31-37); MEAN CORPUSCULAR VOLUME 112 fL (79-100); MONO # 0.8 x10^3/uL (0.0-1.1); MONO % 10 % (0-9); NEUT # 5.8 x10^3/uL (1.8-7.7); NEUT % 72 % (31-73); PLATELET COUNT 381 x10^3/uL (140-400); RED BLOOD COUNT 1.92 x10^6/uL (3.50-5.40); RED CELL DISTRIBUTION WIDTH 26.7 % (11.5-14.5); WHITE BLOOD COUNT 8.2 x10^3/uL (4.0-11.0)
[2020-04-13 09:52] LABS: CREATININE 0.6 mg/dL (0.6-1.0); GFR 137.7; POTASSIUM 3.5 mmol/L (3.5-5.1)
[2020-04-13] MEDS ORDERED: OXYC20TA PO (10:28)
--- NOTE | 2020-04-13 10:31 | PDOC3 ---
Discharge Summary Visit Information Date of Admission: Apr 12, 2020 Date of Discharge: Apr 13, 2020 Admitting Diagnosis Comment: Sickle cell anemia Chronic pain syndrome Chronic narcotic use Final Diagnosis Problems Medical Problems: (1) Prescription refill Status: Acute (2) Sickle cell anemia with pain Status: Acute Brief Hospital Course Allergies Allergies Coded Allergies Type Severity Reaction Last Updated Verified No Known Drug Allergies 03/22/20 No Vital Signs Vital Signs Date Time Temp Pulse Resp B/P (MAP) Pulse Ox O2 Delivery O2 Flow Rate FiO2 04/13/20 09:50 100 Room Air 04/13/20 07:59 98.1 80 18 99/59 (72) 98.1 Lab Results Laboratory Tests Test 04/12/20 11:45 04/12/20 12:10 04/13/20 09:05 Bedside Urine HCG, Qualitative Hcg negative (Negative) White Blood Count 7.9 x10^3/uL (4.0-11.0) 8.2 x10^3/uL (4.0-11.0) Red Blood Count 1.88 x10^6/uL (3.50-5.40) 1.92 x10^6/uL (3.50-5.70) Hemoglobin 7.3 g/dL (12.0-15.5) 7.4 g/dL (12.0-15.5) Hematocrit 20.5 % (36.0-47.0) 21.5 % (36.0-47.0) Mean Corpuscular Volume 109 fL (79-100) 112 fL (79-100) Mean Corpuscular Hemoglobin 39 pg (25-35) 38 pg (25-35) Mean Corpuscular Hemoglobin Concent 36 g/dL (31-37) 34 g/dL (31-37) Red Cell Distribution Width 26.7 % (11.5-14.5) 26.7 % (11.5-14.5) Platelet Count 393 x10^3/uL (140-400) 381 x10^3/uL (140-400) Neutrophils (%) (Auto) 58 % (31-73) 72 % (31-73) Lymphocytes (%) (Auto) 24 % (24-48) 15 % (24-48) Monocytes (%) (Auto) 13 % (0-9) 10 % (0-9) Eosinophils (%) (Auto) 3 % (0-3) 3 % (0-3) Basophils (%) (Auto) 1 % (0-3) 1 % (0-3) Neutrophils # (Auto) 4.6 x10^3/uL (1.8-7.7) 5.8 x10^3/uL (1.8-7.7) Lymphocytes # (Auto) 1.9 x10^3/uL (1.0-4.8) 1.2 x10^3/uL (1.0-4.8) Monocytes # (Auto) 1.0 x10^3/uL (0.0-1.1) 0.8 x10^3/uL (0.0-1.1) Eosinophils # (Auto) 0.2 x10^3/uL (0.0-0.7) 0.2 x10^3/uL (0.0-0.7) Basophils # (Auto) 0.1 x10^3/uL (0.0-0.2) 0.1 x10^3/uL (0.0-0.2) Platelet Estimate Adequate (ADEQUATE) Polychromasia Occasional Poikilocytosis Mod Anisocytosis Marked Microcytosis Slight Macrocytosis Slight Sickle Cells Mod Target Cells Occ Schistocytes Occ Sodium Level 141 mmol/L (136-145) 141 mmol/L (136-145) Potassium Level 3.8 mmol/L (3.5-5.1) 3.5 mmol/L (3.5-5.1) Chloride Level 106 mmol/L (98-107) 106 mmol/L (98-107) Carbon Dioxide Level 25 mmol/L (21-32) 26 mmol/L (21-32) Anion Gap 10 (6-14) 9 (6-14) Blood Urea Nitrogen 7 mg/dL (7-20) 4 mg/dL (7-20) Creatinine 0.8 mg/dL (0.6-1.0) 0.6 mg/dL (0.6-1.0) Estimated GFR (Cockcroft-Gault) 98.8 137.7 BUN/Creatinine Ratio 9 (6-20) Glucose Level 94 mg/dL (70-99) 81 mg/dL (70-99) Calcium Level 8.6 mg/dL (8.5-10.1) 8.0 mg/dL (8.5-10.1) Total Bilirubin 0.6 mg/dL (0.2-1.0) Aspartate Amino Transf (AST/SGOT) 29 U/L (15-37) Alanine Aminotransferase (ALT/SGPT) 26 U/L (14-59) Alkaline Phosphatase 115 U/L (46-116) Total Protein 7.3 g/dL (6.4-8.2) Albumin 3.8 g/dL (3.4-5.0) Albumin/Globulin Ratio 1.1 (1.0-1.7) Absolute Reticulocyte Count 0.181 x10^6/uL (0.020-0.120) Percent Reticulocyte Count 9.4 % (0.5-2.3) Immature Reticulocyte Fraction 0.76 (0.20-0.60) Laboratory Tests Test 04/12/20 11:45 04/12/20 12:10 04/13/20 09:05 Bedside Urine HCG, Qualitative Hcg negative (Negative) White Blood Count 7.9 x10^3/uL (4.0-11.0) 8.2 x10^3/uL (4.0-11.0) Red Blood Count 1.88 x10^6/uL (3.50-5.40) 1.92 x10^6/uL (3.50-5.70) Hemoglobin 7.3 g/dL (12.0-15.5) 7.4 g/dL (12.0-15.5) Hematocrit 20.5 % (36.0-47.0) 21.5 % (36.0-47.0) Mean Corpuscular Volume 109 fL (79-100) 112 fL (79-100) Mean Corpuscular Hemoglobin 39 pg (25-35) 38 pg (25-35) Mean Corpuscular Hemoglobin Concent 36 g/dL (31-37) 34 g/dL (31-37) Red Cell Distribution Width 26.7 % (11.5-14.5) 26.7 % (11.5-14.5) Platelet Count 393 x10^3/uL (140-400) 381 x10^3/uL (140-400) Neutrophils (%) (Auto) 58 % (31-73) 72 % (31-73) Lymphocytes (%) (Auto) 24 % (24-48) 15 % (24-48) Monocytes (%) (Auto) 13 % (0-9) 10 % (0-9) Eosinophils (%) (Auto) 3 % (0-3) 3 % (0-3) Basophils (%) (Auto) 1 % (0-3) 1 % (0-3) Neutrophils # (Auto) 4.6 x10^3/uL (1.8-7.7) 5.8 x10^3/uL (1.8-7.7) Lymphocytes # (Auto) 1.9 x10^3/uL (1.0-4.8) 1.2 x10^3/uL (1.0-4.8) Monocytes # (Auto) 1.0 x10^3/uL (0.0-1.1) 0.8 x10^3/uL (0.0-1.1) Eosinophils # (Auto) 0.2 x10^3/uL (0.0-0.7) 0.2 x10^3/uL (0.0-0.7) Basophils # (Auto) 0.1 x10^3/uL (0.0-0.2) 0.1 x10^3/uL (0.0-0.2) Platelet Estimate Adequate (ADEQUATE) Polychromasia Occasional Poikilocytosis Mod Anisocytosis Marked Microcytosis Slight Macrocytosis Slight Sickle Cells Mod Target Cells Occ Schistocytes Occ Sodium Level 141 mmol/L (136-145) 141 mmol/L (136-145) Potassium Level 3.8 mmol/L (3.5-5.1) 3.5 mmol/L (3.5-5.1) Chloride Level 106 mmol/L (98-107) 106 mmol/L (98-107) Carbon Dioxide Level 25 mmol/L (21-32) 26 mmol/L (21-32) Anion Gap 10 (6-14) 9 (6-14) Blood Urea Nitrogen 7 mg/dL (7-20) 4 mg/dL (7-20) Creatinine 0.8 mg/dL (0.6-1.0) 0.6 mg/dL (0.6-1.0) Estimated GFR (Cockcroft-Gault) 98.8 137.7 BUN/Creatinine Ratio 9 (6-20) Glucose Level 94 mg/dL (70-99) 81 mg/dL (70-99) Calcium Level 8.6 mg/dL (8.5-10.1) 8.0 mg/dL (8.5-10.1) Total Bilirubin 0.6 mg/dL (0.2-1.0) Aspartate Amino Transf (AST/SGOT) 29 U/L (15-37) Alanine Aminotransferase (ALT/SGPT) 26 U/L (14-59) Alkaline Phosphatase 115 U/L (46-116) Total Protein 7.3 g/dL (6.4-8.2) Albumin 3.8 g/dL (3.4-5.0) Albumin/Globulin Ratio 1.1 (1.0-1.7) Absolute Reticulocyte Count 0.181 x10^6/uL (0.020-0.120) Percent Reticulocyte Count 9.4 % (0.5-2.3) Immature Reticulocyte Fraction 0.76 (0.20-0.60) Brief Hospital Course Ms. Parsons is a 34 old female who presented with uncontrolled generalized pain as a consequence of her sickle cell disease. The patient is currently changing from one hospital system to another in order to continue with her sickle cell care. She was going to be discharged yesterday from the emergency department but unfortunately was not able to control her pain well, fluids were given to the patient throughout the night and her symptoms have resolved at this time. Her anemia seems to be at baseline and she is currently taking Hydrea no changes have been made to her medications, my suspicion is that patient ran out of narcotics as she said and came to the ER in order to have pain control. K tracts was utilized unfortunately there was no record of the patient which seems count of altered since he most likely has been on chronic narcotics for a long time. He was hemodynamically stable and in good spirits to be discharged home I have advised to follow-up with her new doctor as soon as possible noted to establish care again. Physical exam Gen.: well-developed well-nourished in no apparent distress Head: Normal shape atraumatic Eyes: Pupils equal reactive to light and accommodation, normal conjunctivae and lids Ears: Normal shape Nose: Normal shape no trauma Mouth: No exudates of the back of throat no thrush no lesions Neck: Supple no JVD no carotid bruit or lymphadenopathy no thyromegaly Chest: Lungs clear to auscultation with good inspiratory effort no crackles rales or rhonchi Cardiovascular: S1-S2 regular rhythm no murmurs gallops or rubs Abdomen: Bowel sounds present soft nontender no hepatosplenomegaly appreciated sign Extremities: No clubbing no cyanosis no edema peripheral pulses palpated bi laterally Neurological: Alert awake oriented in person time place and situation, cranial nerves II through XII intact, no motor or sensory deficits appreciated Psych: Appropriate mood, cooperative Discharge Information Condition at Discharge: Improved Follow Up: Weeks Disposition/Orders: D/C to Home Scheduled Aspirin (Children's Aspirin) 81 Mg Tab.chew, 1 TAB PO DAILY for blood thinner for 30 Days, #30 Ref 0 (Reported) Entered as Reported by: ROXI REAVES on 04/12/202103 Last Action: New Order on 04/12/202103 by ROXI REAVES Fluoxetine Hcl (Prozac) 40 Mg Capsule, 1 CAP PO BID for depression, #30 Ref 3 (Reported) Entered as Reported by: ROXI REAVES on 04/12/202103 Last Action: New Order on 04/12/202103 by ROXI REAVES Hydroxyurea (Hydroxyurea) 500 Mg Capsule, 500 MG PO BID for sickle cell, (Reported) Entered as Reported by: ROXI REAVES on 04/12/202103 Last Action: New Order on 04/12/202103 by ROXI REAVES Multivitamin (One-Daily Multi-Vitamin) 1 Each Tablet, 1 TAB PO DAILY for supplement for 30 Days, #30 Ref 0 (Reported) Entered as Reported by: ROXI REAVES on 04/12/202103 Last Action: New Order on 04/12/202103 by ROXI REAVES Trazodone Hcl (Trazodone Hcl) 100 Mg Tablet, 1 TAB PO QHS for sleep, #30 Ref 1 (Reported) Entered as Reported by: ROXI REAVES on 04/12/202103 Last Action: New Order on 04/12/202103 by ROXI REAVES Vitamin D3/Vitamin K2 (D3 + K2 Dots 1,000 Units Tab) 1 Each Tab.rapdis, 1 TAB PO DAILY for supplement for 30 Days, #30 Ref 0 (Reported) Entered as Reported by: ROXI REAVES on 04/12/202103 Last Action: New Order on 04/12/202103 by ROXI REAVES Scheduled PRN Oxycodone Hcl (Oxycodone Hcl) 20 Mg Tablet, 20 MG PO Q6HRS PRN for PAIN for 5 Days, #20 Ref 0 Prescribed by: VIVIEN BRUCE MD on 04/13/20 1028 Justicifation of Admission Dx: Justifications for Admission: Justification of Admission Dx: Yes VIVIEN BRUCE MD Apr 13, 2020 10:31
--- NOTE | 2020-04-13 14:33 | NUR ---
pt was dischagred home today with self care. she was given a script in hand for oxycodone. went into room to get pt to sign paperwork and she wanted a cab pass, called meter shop supervisor for pass and she told me it would be a little bit before she could get it to me. we took out the pt's IV while we were waiting. the pt was in room for about 2 hrs with boyfriend before she got very upset that we had not gotten cab for her or that she didnt get any pain meds. the only pain meds on her NOV was for IV morphine, no IV access to give to pt. was going to get a one time dose for oxycodone but pt became very upset and told us she was leaving, that her uncle would come pick her up. boyfriend kept asking for wheelchair. told him he needed to be escorted out by RN or CARTOGRAPHIC TECHNICIAN, she got into wheelchair without signing papers and had boyfriend push her to ED exit, had CARTOGRAPHIC TECHNICIAN follow pt. discharge paperwork was not signed. Phillip Hou RN
== END 2020-04-13 12:45 | disposition home or self-care (01) ==
LOC: ER 11:12 → 5 NORTH 19:30
PROVIDERS: ADMIT Internal Medicine; ATTEND Internal Medicine
DX: D57.1 Sickle-cell disease without crisis (principal); G89.4 Chronic pain syndrome; Z79.891 Long term (current) use of opiate analgesic; Z86.73 Personal history of transient ischemic attack (TIA), and cerebral infarction without residual deficits; Z96.649 Presence of unspecified artificial hip joint
CPT/HCPCS: 36415; 80048; 80053; 81025; 85025; 85045; 96372; 96374; 96375; 96376; 99284; G0378; J1200; J2270; J7030; J7120; G0379

== ENCOUNTER 2020-05-30 17:15 | Inpatient (IN) | payer MEDICARE, MEDICAID ==
[~2020-05-30] VITALS: Ht 165.1 cm; Wt 52.1 kg
[~2020-05-30 17:15] MED LIST: ASPI81TA59 PO; FLUO40CA9 PO; HYDR500C16 PO; MULT-735 PO; OXYC20TA PO; TRAZ-123 PO; VITA1TAB31 PO
[2020-05-30 19:29] LABS: BASO # 0.1 x10^3/uL (0.0-0.2); BASO % 1 % (0-3); EOS # 0.2 x10^3/uL (0.0-0.7); EOS % 2 % (0-3); HEMATOCRIT 22.6 % (36.0-47.0); HEMOGLOBIN 7.6 g/dL (12.0-15.5); LYMPH # 1.5 x10^3/uL (1.0-4.8); LYMPH % 11 % (24-48); MEAN CORPUSCULAR HEMOGLOBIN 34 pg (25-35); MEAN CORPUSCULAR HGB CONC 34 g/dL (31-37); MEAN CORPUSCULAR VOLUME 101 fL (79-100); MONO % 14 % (0-9); NEUT % 72 % (31-73); PLATELET COUNT 227 x10^3/uL (140-400); RED BLOOD COUNT 2.24 x10^6/uL (3.50-5.40); RED CELL DISTRIBUTION WIDTH 17.7 % (11.5-14.5); WHITE BLOOD COUNT 13.8 x10^3/uL (4.0-11.0)
[2020-05-30] MEDS ORDERED: IV NORMAL SALINE 1000ML BAG 1,000 ML IV ONE (19:30)
[2020-05-30] MEDS ORDERED: diphenhydrAMINE 50 MG/ML VIAL IVP ONE (19:30)
[2020-05-30] MEDS ORDERED: MORPHINE SULFATE 4 MG/ML VIAL. IV ONE ×2 (19:30→21:15)
[2020-05-30 19:42] LABS: CALCIUM 8.7 mg/dL (8.5-10.1); CREATININE 1.2 mg/dL (0.6-1.0); GFR 61.9; POTASSIUM 4.2 mmol/L (3.5-5.1)
[2020-05-30 19:50] LABS: TOTAL BILIRUBIN 1.5 mg/dL (0.2-1.0)
[2020-05-30 20:02] LABS: % EOS 2 % (0-5); % LYMPHS 13 % (24-48); % MONOS 13 % (0-10); % SEGS 72 % (35-66); ANISOCYTOSIS SLIGHT; NUCLEATED RBC 9; PLT ESTIMATE ADEQUATE (ADEQUATE); POIKILOCYTOSIS MOD; SICKLE CELLS MOD
[2020-05-30 20:03] LABS: POLYCHROMASIA OCCASIONAL; TARGET CELLS MOD
[2020-05-30 20:04] LABS: BURR CELLS OCC; SCHISTOCYTES OCC; TEAR DROP CELLS OCC
[2020-05-30] MEDS ORDERED: HYDROmorphone 2 MG/ML VIAL ONE (20:06)
[2020-05-30] MEDS ORDERED: HYDROmorphone 2 MG/ML VIAL IVP ONE (20:30)
--- NOTE | 2020-05-30 20:40 | PHYS DOC ---
Past Medical History Past Medical History: Sickle Cell Disease, Stroke Additional Past Medical Histor: HIP REPLACEMENT X2, ACUTE CHEST SYNDROME (BRENDA MISHRA APRN) Past Surgical History: Hip Replacement Additional Past Surgical Histo: brain shunt, hip replacement x 2 (BRENDA MISHRA APRN) Smoking Status: Never Smoker Alcohol Use: None (BRENDA MISHRA APRN) General Adult EDM: Chief Complaint: PAIN CONTROL HPI: HPI: Patient is a 34 year old AA female who presents to the emergency department with request for pain medication. Patient states that she is having a flareup of her sickle cell pain. She has been taking her pain medication at home with no relief of her symptoms. She states that this flareup began 3 days ago. She states that the only medication that works for her sickle cell episodes is morphine, alternated with Dilaudid and Benadryl. She denies any fever, cough, shortness of breath, abdominal pain, nausea, vomiting, or diarrhea. The patient currently rates her pain a 10 out of 10 on pain scale, she denies any alleviating or exacerbating factors. She reports that the pain is located everywhere. Patient is very short with her responses therefore the HPI is limited. (BRENDA MISHRA APRN) Review of Systems: Review of Systems: Complete ROS is negative unless otherwise stated in the HPI. (BRENDA MISHRA APRN) Heart Score: Risk Factors: Risk Factors: DM, Current or recent (<one month) smoker, HTN, HLP, family history of CAD, obesity. Risk Scores: Score 0 - 3: 2.5% MACE over next 6 weeks - Discharge Home Score 4 - 6: 20.3% MACE over next 6 weeks - Admit for Clinical Observation Score 7 - 10: 72.7% MACE over next 6 weeks - Early Invasive Strategies (BRENDA MISHRA APRN) Current Medications: Current Medications Medications (Trade) Dose Ordered Sig/Saul Start Time Stop Time Status Last Admin Dose Admin Diphenhydramine HCl (Benadryl) 25 mg 1X ONCE 05/30/20 19:30 05/30/20 19:31 DC 05/30/20 19:23 25 MG Hydromorphone HCl (Dilaudid) 2 mg STK-MED ONCE 05/30/20 20:06 05/30/20 20:07 DC Morphine Sulfate (Morphine Sulfate) 4 mg 1X ONCE 05/30/20 19:30 05/30/20 19:31 DC 05/30/20 19:24 4 MG Sodium Chloride 1,000 ml @ 1,000 mls/hr 1X ONCE 05/30/20 19:30 05/30/20 20:29 DC 05/30/20 19:29 1,000 MLS/HR (BRENDA MISHRA APRN) Allergies: Allergies: Allergies Coded Allergies Type Severity Reaction Last Updated Verified latex Allergy Intermediate RIPS SKIN OFF 05/30/20 Yes adhesive tape Allergy Mild 05/30/20 Yes (BRENDA MISHRA APRN) Physical Exam: PE: Constitutional: Well developed, well nourished, no acute distress, non-toxic appearance, appears irritated. [] HENT: Normocephalic, atraumatic, bilateral external ears normal, nose normal. [] Eyes: PERRLA, EOMI, conjunctiva normal, no discharge. [] Neck: Normal range of motion, no stridor. [] Cardiovascular:Heart rate regular rhythm Lungs & Thorax: Bilateral breath sounds clear to auscultation, my lungs [] Abdomen: soft, no tenderness Skin: Warm, dry, no erythema, no rash. [] Extremities: No cyanosis, ROM intact, no edema. [] Neurologic: Alert and oriented X 3, no focal deficits noted. [] Psychologic: Affect normal, judgement normal, mood normal. [] (BRENDA MISHRA APRN) Current Patient Data: Labs: Laboratory Tests Test 05/30/20 19:00 White Blood Count 13.8 x10^3/uL (4.0-11.0) H Red Blood Count 2.24 x10^6/uL (3.50-5.70) L Hemoglobin 7.6 g/dL (12.0-15.5) L Hematocrit 22.6 % (36.0-47.0) L Mean Corpuscular Volume 101 fL (79-100) H Mean Corpuscular Hemoglobin 34 pg (25-35) Mean Corpuscular Hemoglobin Concent 34 g/dL (31-37) Red Cell Distribution Width 17.7 % (11.5-14.5) H Platelet Count 227 x10^3/uL (140-400) Neutrophils (%) (Auto) 72 % (31-73) Lymphocytes (%) (Auto) 11 % (24-48) L Monocytes (%) (Auto) 14 % (0-9) H Eosinophils (%) (Auto) 2 % (0-3) Basophils (%) (Auto) 1 % (0-3) Neutrophils # (Auto) 10.0 x10^3/uL (1.8-7.7) H Lymphocytes # (Auto) 1.5 x10^3/uL (1.0-4.8) Monocytes # (Auto) 2.0 x10^3/uL (0.0-1.1) H Eosinophils # (Auto) 0.2 x10^3/uL (0.0-0.7) Basophils # (Auto) 0.1 x10^3/uL (0.0-0.2) Segmented Neutrophils % 72 % (35-66) H Lymphocytes % 13 % (24-48) L Monocytes % 13 % (0-10) H Eosinophils % 2 % (0-5) Nucleated Red Blood Cells 9 Platelet Estimate Adequate (ADEQUATE) Large Platelets Few Giant Platelets Occ Polychromasia Occasional Poikilocytosis Mod Anisocytosis Slight Sickle Cells Mod Target Cells Mod Tear Drop Cells Occ Pallavi Cells Occ Schistocytes Occ Absolute Reticulocyte Count 0.096 x10^6/uL (0.020-0.120) Percent Reticulocyte Count 4.3 % (0.5-2.3) H Immature Reticulocyte Fraction 0.44 (0.20-0.60) Sodium Level 139 mmol/L (136-145) Potassium Level 4.2 mmol/L (3.5-5.1) Chloride Level 105 mmol/L (98-107) Carbon Dioxide Level 24 mmol/L (21-32) Anion Gap 10 (6-14) Blood Urea Nitrogen 16 mg/dL (7-20) Creatinine 1.2 mg/dL (0.6-1.0) H Estimated GFR (Cockcroft-Gault) 61.9 BUN/Creatinine Ratio 13 (6-20) Glucose Level 101 mg/dL (70-99) H Calcium Level 8.7 mg/dL (8.5-10.1) Total Bilirubin 1.5 mg/dL (0.2-1.0) H Aspartate Amino Transferase (AST) 66 U/L (15-37) H Alanine Aminotransferase (ALT) 37 U/L (14-59) Alkaline Phosphatase 138 U/L (46-116) H Total Protein 8.0 g/dL (6.4-8.2) Albumin 4.0 g/dL (3.4-5.0) Albumin/Globulin Ratio 1.0 (1.0-1.7) Laboratory Tests 05/30/20 19:00 Laboratory Tests 05/30/20 19:00 Vital Signs: Vital Signs Date Time Temp Pulse Resp B/P (MAP) Pulse Ox O2 Delivery O2 Flow Rate FiO2 05/30/20 20:10 18 95 05/30/20 19:23 82 118/57 (77) Nasal Cannula 2.0 05/30/20 17:52 98.1 98.1 (BRENDA MISHRA APRN) EKG: EKG: [] (BRENDA MISHRA APRN) Radiology/Procedures: Radiology/Procedures: [id number]-spoke with Dr. Fulton who is the admitting physician, and care was assumed following discussion of patient. Will admit patient for intractable pain as observation status. Patient's vital signs stable.. Patient remains afebrile, appears nontoxic, resp irations even and unlabored. Patient will be admitted to the telemetry floor. Patient's case and plan of care also discussed with Dr. Dela Cruz (BRENDA MIHSRA APRN) Course & Med Decision Making: Course & Med Decision Making Pertinent Labs and Imaging studies reviewed. (See chart for details) [] (BRENDA MISHRA APRN) Course & Med Decision Making I have reviewed the PA/SNOW MAKER's note and Plan of Care. I was available for consultation as needed during the patient's visit in the emergency department. I agree with the clinical impression, plans and disposition. (BYRON DELA CRUZ MD) Dragon Disclaimer: Dragon Disclaimer: This electronic medical record was generated, in whole or in part, using a voice recognition dictation system. (BRENDA MISHRA APRN) Departure Departure Impression: Primary Impression: Intractable pain Disposition: ADMITTED INPATIENT Admitting Physician: SERGEY Fulton) (BRENDA MISHRA APRN) Condition: STABLE Referrals: NO PCP (PCP) Justicifation of Admission Dx: Justifications for Admission: Justification of Admission Dx: Yes Comments: Intractable pain (BRENDA MISHRA APRN) BRENDA MISHRA APRN May 30, 2020 20:40 BYRON DELA CRUZ MD May 31, 2020 00:30
[2020-05-30] MEDS ORDERED: ZOLPIDEM 5 MG TABLET. PO PRN (20:45)
[2020-05-30] MEDS ORDERED: ACETAMINOPHEN 325 MG TABLET. PO PRN (20:45)
[2020-05-30] MEDS ORDERED: fentaNYL PF VIAL 100 MCG/2 ML VIAL IV PRN (20:45)
[2020-05-30] MEDS ORDERED: cloNIDine HCL 0.1 MG TABLET PO PRN (20:45)
[2020-05-30] MEDS ORDERED: DOCUSATE SODIUM 100 MG CAPSULE. PO PRN (20:45)
[2020-05-30] MEDS ORDERED: guaiFENesin ORAL 200 MG/10 ML LIQUID. PO PRN (20:45)
[2020-05-30] MEDS ORDERED: ONDANSETRON PF 4 MG/2 ML VIAL. IV PRN (20:45)
[2020-05-30] MEDS ORDERED: ALBUTEROL SULFATE 2.5 MG/3 ML NEBU. NEB PRN (20:45)
[2020-05-30] MEDS: FLUoxetine HCL 20 MG CAPSULE PO SCH (21:00)
[2020-05-30] MEDS: traZODone 100 MG TABLET. PO SCH (21:00)
[2020-05-30] MEDS ORDERED: IV NORMAL SALINE 1000ML BAG 1,000 ML IV SCH (21:00)
[2020-05-30] MEDS: IV NORMAL SALINE 1000ML BAG 1,000 ML IV SCH (22:00)
--- NOTE | 2020-05-30 22:05 | NUR ---
Admit from ER. Thin, black female, in no apparent distress. States she "feels dizzy" but requests to walk from ER gurney to toilet. This RN did not witness ambulation. Patient talking rapidly, "I need my Blisterell!" "I'm so anxious!" When asked what her "Blisterell" was, she started screaming into her cell phone to Google this medicine. Repeatedly. States her generalized pain is 10/10. States she is allergic to Fentanyl, causes tongue to swell and hives, requests "IV Morphine 8mg every 3 hours." Discussed that I would page Dr. Fulton re: pain management.
[2020-05-30 22:15] VITALS: BP 107/56
[2020-05-30] MEDS: diphenhydrAMINE 50 MG/ML VIAL IVP PRN (23:00)
--- NOTE | 2020-05-30 23:10 | NUR ---
Dr. Kirstin german. Patient shouting at her on phone. Cursing and accusations abound. Patient requesting turkey sandwich.
[2020-05-30] MEDS: HYDROXYUREA 500 MG CAPSULE PO SCH (23:13)
[2020-05-30] MEDS: oxyCODONE IR 5 MG TABLET PO PRN (23:31)
[2020-05-31 07:00] VITALS: BP 80/38
[2020-05-31] MEDS: oxyCODONE IR 5 MG TABLET PO PRN ×3 (09:11→21:06)
[2020-05-31] MEDS: CHOLECALCIFEROL (VITAMIN D3) 1,000 UNIT TABLET PO SCH (09:12)
[2020-05-31] MEDS: ASPIRIN CHEWABLE 81 MG TABLET. PO SCH (09:12)
[2020-05-31] MEDS: FLUoxetine HCL 20 MG CAPSULE PO SCH ×2 (09:12→20:38)
[2020-05-31] MEDS: MULTIVITAMIN with MINERAL TABLET. PO SCH (09:12)
[2020-05-31] MEDS: diphenhydrAMINE 50 MG/ML VIAL IVP PRN ×4 (09:12→22:36)
[2020-05-31] MEDS: HYDROXYUREA 500 MG CAPSULE PO SCH ×2 (10:05→20:42)
[2020-05-31] MEDS: MORPHINE SULFATE 2 MG/ML VIAL. IV PRN ×6 (10:37→22:35)
[2020-05-31] MEDS: IV NORMAL SALINE 1000ML BAG 1,000 ML IV SCH ×2 (10:37→21:07)
[2020-05-31 11:00] VITALS: BP 92/32
[2020-05-31] MEDS ORDERED: diphenhydrAMINE 50 MG/ML VIAL IM ONE (12:00)
[2020-05-31] MEDS ORDERED: diphenhydrAMINE 50 MG/ML VIAL IVP ONE ×2 (12:30→15:00)
[2020-05-31] MEDS: LORazepam 0.5 MG TABLET PO PRN ×3 (12:32→22:34)
--- NOTE | 2020-05-31 12:46 | PDOC1 ---
History and Physical Date of Service: DOS: DATE: 05/31/20 TIME: 12:39 History of Present Illness: HPI: 34 year old -[place] female who presents to the emergency department with request for pain medication. Patient states that she is having a flareup of her sickle cell pain. She has been taking her pain medication at home with no relief of her symptoms. She states that this flareup began 3 days ago. She states that the only medication that works for her sickle cell episodes is morphine, alternated with Dilaudid and Benadryl. She denies any fever, cough, shortness of breath, abdominal pain, nausea, vomiting, or diarrhea. The patient currently rates her pain a 10 out of 10 on pain scale, she denies any alleviating or exacerbating factors. She reports that the pain is located everywhere. Patient is very short with her responses therefore the HPI is limited. At the time of my evaluation, patient continues to have the same presentation of her symptoms. She describes her bilateral leg and hand of throbbing pain. She feels like it she is having cramps in her hands or legs. Denies abdominal pain, shortness of breath, chest pain, bloody stools, jaundice, swelling. Past Medical/Surgical History: PMH/PSH: Past Medical History: Sickle Cell Disease, Stroke, HIP REPLACEMENT X2, ACUTE CHEST SYNDROME Past Surgical History: brain shunt Allergies: Allergies: Coded Allergies: fentanyl (Verified Allergy, Severe, Swelling, 05/30/20) "tongue swells up" "hives" latex (Verified Allergy, Intermediate, RIPS SKIN OFF, 05/30/20) adhesive tape (Verified Allergy, Mild, 05/30/20) Family History: Family History: Reviewed and none reported Social History: Social History: Denies alcohol, smoking, drug abuse Current Medications: Current Medications Current Medications Diphenhydramine HCl (Benadryl) 25 mg 1X ONCE IVP Last administered on 05/30/20at 19:23; Start 05/30/20 at 19:30; Stop 05/30/20 at 19:31; Status DC Morphine Sulfate (Morphine Sulfate) 4 mg 1X ONCE IV Last administered on 05/30/20at 19:24; Start 05/30/20 at 19:30; Stop 05/30/20 at 19:31; Status DC Sodium Chloride 1,000 ml @ 1,000 mls/hr 1X ONCE IV Last administered on 05/30/20at 19:29; Start 05/30/20 at 19:30; Stop 05/30/20 at 20:29; Status DC Hydromorphone HCl (Dilaudid) 1 mg 1X ONCE IVP Last administered on 05/30/20at 20:10; Start 05/30/20 at 20:30; Stop 05/30/20 at 20:31; Status DC Hydromorphone HCl (Dilaudid) 2 mg STK-MED ONCE .ROUTE ; Start 05/30/20 at 20:06; Stop 05/30/20 at 20:07; Status DC Sodium Chloride 1,000 ml @ 100 mls/hr Q10H IV ; Start 05/30/20 at 21:00; Stop 05/31/20 at 20:59; Status Cancel Sodium Chloride 1,000 ml @ 100 mls/hr Q10H IV Last administered on 05/31/20at 10:37; Start 05/30/20 at 22:00 Ondansetron HCl (Zofran) 4 mg PRN Q4HRS PRN IV NAUSEA/VOMITING; Start 05/30/20 at 20:45 Zolpidem Tartrate (Ambien) 5 mg PRN QHS PRN PO INSOMNIA; Start 05/30/20 at 20:45 Acetaminophen (Tylenol) 650 mg PRN Q4HRS PRN PO TEMP OVER 100.4F OR MILD PAIN; Start 05/30/20 at 20:45 Clonidine HCl (Catapres) 0.1 mg PRN Q6HRS PRN PO SBP>160 OR DBP>90; Start 05/30/20 at 20:45 Diphenhydramine HCl (Benadryl) 25 mg PRN Q4HRS PRN IVP ITCHING Last administered on 05/31/20at 09:12; Start 05/30/20 at 20:45 Docusate Sodium (Colace) 100 mg PRN BID PRN PO HARD STOOLS; Start 05/30/20 at 20:45 Albuterol Sulfate (Ventolin Neb Soln) 2.5 mg PRN Q4HRS PRN NEB SHORTNESS OF BREATH; Start 05/30/20 at 20:45 Guaifenesin (Robitussin) 200 mg PRN Q4HRS PRN PO COUGH Last administered on 05/30/20at 22:59; Start 05/30/20 at 20:45 Lorazepam (Ativan) 0.5 mg PRN Q4HRS PRN PO ANXIETY / AGITATION Last administered on 05/31/20at 12:32; Start 05/30/20 at 20:45 Aspirin (Aspirin Chewable) 81 mg DAILY PO Last administered on 05/31/20at 09:12; Start 05/31/20 at 09:00 Hydroxyurea (Hydrea) 500 mg BID PO Last administered on 05/31/20at 10:05; Start 05/30/20 at 21:00 Trazodone HCl (Desyrel) 100 mg QHS PO Last administered on 05/30/20 21:00; Start 05/30/20 at 21:00 Fluoxetine HCl (PROzac) 40 mg BID PO Last administered on 05/31/20 09:12; Start 05/30/20 at 21:00 Multivitamins (Thera M Plus) 1 tab DAILY PO Last administered on 05/31/20 09:12; Start 05/31/20 at 09:00 Oxycodone HCl (Roxicodone) 20 mg PRN Q6HRS PRN PO PAIN Last administered on 05/31/20 09:11; Start 05/30/20 at 21:00 Vitamin D (Vitamin D3) 1,000 unit DAILY PO Last administered on 05/31/20at 09:12; Start 05/31/20 at 09:00 Fentanyl Citrate (Fentanyl 2ml Vial) 25 mcg PRN Q3HRS PRN IV PAIN; Start 05/30/20 at 20:45; Stop 05/30/20 at 23:18; Status DC Morphine Sulfate (Morphine Sulfate) 4 mg 1X ONCE IV Last administered on 05/30/20at 21:00; Start 05/30/20 at 21:15; Stop 05/30/20 at 21:16; Status DC Morphine Sulfate (Morphine Sulfate) 4 mg PRN Q2HR PRN IV PAIN Last administered on 05/31/20at 10:37; Start 05/31/20 at 10:30 Diphenhydramine HCl (Benadryl) 25 mg 1X ONCE IM ; Start 05/31/20 at 12:00; Stop 05/31/20 at 12:23; Status DC Diphenhydramine HCl (Benadryl) 25 mg 1X ONCE IVP Last administered on 05/31/20at 12:32; Start 05/31/20 at 12:30; Stop 05/31/20 at 12:31; Status DC Active Scripts Active Oxycodone Hcl 20 Mg Tablet 20 Mg PO Q6HRS PRN 5 Days Reported Prozac (Fluoxetine Hcl) 40 Mg Capsule 1 Cap PO BID Trazodone Hcl 100 Mg Tablet 1 Tab PO QHS D3 + K2 Dots 1,000 Units Tab (Vitamin D3/Vitamin K2) 1 Each Tab.rapdis 1 Tab PO DAILY 30 Days One-Daily Multi-Vitamin (Multivitamin) 1 Each Tablet 1 Tab PO DAILY 30 Days Children's Aspirin (Aspirin) 81 Mg Tab.chew 1 Tab PO DAILY 30 Days Hydroxyurea 500 Mg Capsule 500 Mg PO BID ROS: Review of Systems Review of System REVIEW OF SYSTEMS: GENERAL: Denies weakness SKIN: No bruising, hair changes or rashes. EYES: No blurred, double or loss of vision. NOSE AND THROAT: No history of nosebleeds, hoarseness or sore throat. HEART: No history of palpitations, chest pain or shortness of breath on exertion. LUNGS: Denies cough, hemoptysis, wheezing or shortness of breath. GASTROINTESTINAL: Denies changes in appetite, nausea, vomiting, diarrhea or constipation. GENITOURINARY: No history of frequency, urgency, hesitancy or nocturia. NEUROLOGIC: Denies history of numbness, tingling, or tremor. PSYCHIATRIC: No history of panic, anxiety or depression. ENDOCRINE: No history of heat or cold intolerance, polyuria or polydipsia. EXTREMITIES: Denies joint pain, pain on walking or stiffness. Physical Exam: Vital Signs: Vital Signs Date Time Temp Pulse Resp B/P (MAP) Pulse Ox O2 Delivery O2 Flow Rate FiO2 05/31/20 11:00 98.3 83 14 92/32 (52) 93 Room Air 98.3 05/30/20 22:15 3.0 Physcial Exam: GEN: No apparent distress. Alert and oriented HEENT: Normal cephalic, atraumatic, external auditory canals are patent EYES: Extraocular muscles are intact, pupil are equally round and reactive to light and accommodation MUSCULOSKELETAL: Well developed , well nourished, good range of motion ENDOCRINE: No thyromegaly was palpated LYMPHATICS: No cervical chain or axillary nodes were noted HEMATOPOIETIC: No bruising NECK: Supple, no JVD, no thyromegaly was noted LUNGS: Clear to auscultation in all lung heck without rhonchi or wheezing HEART: RRR, S!, S2 present. Peripheral pulses intact, no obvious murmurs noted ABDOMEN: Soft, nontender. Positive bowel sounds, no organomegaly, normal bowel sounds EXTREMITIES: Without clubbing, cyanosis, or edema. Pedal pulses intact. Negative Homans sign NEUROLOGIC: Normal speech and tone. A&O x 3, moves all extremities, no obvi ous focal deficits PSYCHIATRIC: Normal affect, normal mood. Stable SKIN: No ulcerations or rashes, good skin turgor, no jaundice VASCULAR: Good capillary refill, neurovascular bundle appears to be intact Labs: Labs: Laboratory Tests Test 05/30/20 19:00 White Blood Count 13.8 x10^3/uL (4.0-11.0) Red Blood Count 2.24 x10^6/uL (3.50-5.70) Hemoglobin 7.6 g/dL (12.0-15.5) Hematocrit 22.6 % (36.0-47.0) Mean Corpuscular Volume 101 fL (79-100) Mean Corpuscular Hemoglobin 34 pg (25-35) Mean Corpuscular Hemoglobin Concent 34 g/dL (31-37) Red Cell Distribution Width 17.7 % (11.5-14.5) Platelet Count 227 x10^3/uL (140-400) Neutrophils (%) (Auto) 72 % (31-73) Lymphocytes (%) (Auto) 11 % (24-48) Monocytes (%) (Auto) 14 % (0-9) Eosinophils (%) (Auto) 2 % (0-3) Basophils (%) (Auto) 1 % (0-3) Neutrophils # (Auto) 10.0 x10^3/uL (1.8-7.7) Lymphocytes # (Auto) 1.5 x10^3/uL (1.0-4.8) Monocytes # (Auto) 2.0 x10^3/uL (0.0-1.1) Eosinophils # (Auto) 0.2 x10^3/uL (0.0-0.7) Basophils # (Auto) 0.1 x10^3/uL (0.0-0.2) Segmented Neutrophils % 72 % (35-66) Lymphocytes % 13 % (24-48) Monocytes % 13 % (0-10) Eosinophils % 2 % (0-5) Nucleated Red Blood Cells 9 Platelet Estimate Adequate (ADEQUATE) Large Platelets Few Giant Platelets Occ Polychromasia Occasional Poikilocytosis Mod Anisocytosis Slight Sickle Cells Mod Target Cells Mod Tear Drop Cells Occ Pallavi Cells Occ Schistocytes Occ Absolute Reticulocyte Count 0.096 x10^6/uL (0.020-0.120) Percent Reticulocyte Count 4.3 % (0.5-2.3) Immature Reticulocyte Fraction 0.44 (0.20-0.60) Sodium Level 139 mmol/L (136-145) Potassium Level 4.2 mmol/L (3.5-5.1) Chloride Level 105 mmol/L (98-107) Carbon Dioxide Level 24 mmol/L (21-32) Anion Gap 10 (6-14) Blood Urea Nitrogen 16 mg/dL (7-20) Creatinine 1.2 mg/dL (0.6-1.0) Estimated GFR (Cockcroft-Gault) 61.9 BUN/Creatinine Ratio 13 (6-20) Glucose Level 101 mg/dL (70-99) Calcium Level 8.7 mg/dL (8.5-10.1) Total Bilirubin 1.5 mg/dL (0.2-1.0) Aspartate Amino Transf (AST/SGOT) 66 U/L (15-37) Alanine Aminotransferase (ALT/SGPT) 37 U/L (14-59) Alkaline Phosphatase 138 U/L (46-116) Total Protein 8.0 g/dL (6.4-8.2) Albumin 4.0 g/dL (3.4-5.0) Albumin/Globulin Ratio 1.0 (1.0-1.7) Laboratory Tests Test 05/30/20 19:00 White Blood Count 13.8 x10^3/uL (4.0-11.0) Red Blood Count 2.24 x10^6/uL (3.50-5.70) Hemoglobin 7.6 g/dL (12.0-15.5) Hematocrit 22.6 % (36.0-47.0) Mean Corpuscular Volume 101 fL (79-100) Mean Corpuscular Hemoglobin 34 pg (25-35) Mean Corpuscular Hemoglobin Concent 34 g/dL (31-37) Red Cell Distribution Width 17.7 % (11.5-14.5) Platelet Count 227 x10^3/uL (140-400) Neutrophils (%) (Auto) 72 % (31-73) Lymphocytes (%) (Auto) 11 % (24-48) Monocytes (%) (Auto) 14 % (0-9) Eosinophils (%) (Auto) 2 % (0-3) Basophils (%) (Auto) 1 % (0-3) Neutrophils # (Auto) 10.0 x10^3/uL (1.8-7.7) Lymphocytes # (Auto) 1.5 x10^3/uL (1.0-4.8) Monocytes # (Auto) 2.0 x10^3/uL (0.0-1.1) Eosinophils # (Auto) 0.2 x10^3/uL (0.0-0.7) Basophils # (Auto) 0.1 x10^3/uL (0.0-0.2) Segmented Neutrophils % 72 % (35-66) Lymphocytes % 13 % (24-48) Monocytes % 13 % (0-10) Eosinophils % 2 % (0-5) Nucleated Red Blood Cells 9 Platelet Estimate Adequate (ADEQUATE) Large Platelets Few Giant Platelets Occ Polychromasia Occasional Poikilocytosis Mod Anisocytosis Slight Sickle Cells Mod Target Cells Mod Tear Drop Cells Occ [place] Cells Occ Schistocytes Occ Absolute Reticulocyte Count 0.096 x10^6/uL (0.020-0.120) Percent Reticulocyte Count 4.3 % (0.5-2.3) Immature Reticulocyte Fraction 0.44 (0.20-0.60) Sodium Level 139 mmol/L (136-145) Potassium Level 4.2 mmol/L (3.5-5.1) Chloride Level 105 mmol/L (98-107) Carbon Dioxide Level 24 mmol/L (21-32) Anion Gap 10 (6-14) Blood Urea Nitrogen 16 mg/dL (7-20) Creatinine 1.2 mg/dL (0.6-1.0) Estimated GFR (Cockcroft-Gault) 61.9 BUN/Creatinine Ratio 13 (6-20) Glucose Level 101 mg/dL (70-99) Calcium Level 8.7 mg/dL (8.5-10.1) Total Bilirubin 1.5 mg/dL (0.2-1.0) Aspartate Amino Transf (AST/SGOT) 66 U/L (15-37) Alanine Aminotransferase (ALT/SGPT) 37 U/L (14-59) Alkaline Phosphatase 138 U/L (46-116) Total Protein 8.0 g/dL (6.4-8.2) Albumin 4.0 g/dL (3.4-5.0) Albumin/Globulin Ratio 1.0 (1.0-1.7) Images: Images No images to review at this time Assessment/Plan Assessment/Plan Bilateral extremity pain concerning for sickle cell anemia flare Macrocytic anemia, leukocytosis [place] due to vasomotor nephropathy Hyperbilirubinemia Mild transaminitis Admit to medicine for further management Hematology consult Continue IV fluids Continue IV pain control Continue home medications Lovenox for DVT prophylaxis Protonix GI prophylaxis ADA diet Full code Discussed with RN and SW Disposition pending hematology evaluation Surrogate decision maker is undesignated Justifications for Admission Other Justification ENA ALVARES MD May 31, 2020 12:46
[2020-05-31] MEDS ORDERED: ENOXAPARIN 40 MG/0.4 ML SYRINGE. SQ SCH (13:00)
[2020-05-31 15:00] VITALS: BP 95/46
[2020-05-31 19:00] VITALS: BP 92/40
[2020-05-31] MEDS: traZODone 100 MG TABLET. PO SCH (20:37)
[2020-05-31] MEDS: ENOXAPARIN 40 MG/0.4 ML SYRINGE. SQ SCH (20:43)
[2020-05-31 23:00] VITALS: BP 99/52
[2020-06-01 03:00] VITALS: BP 103/57
[2020-06-01] MEDS: IV NORMAL SALINE 1000ML BAG 1,000 ML IV SCH ×4 (05:31→21:09)
[2020-06-01] MEDS: MORPHINE SULFATE 2 MG/ML VIAL. IV PRN ×3 (05:32→10:01)
[2020-06-01] MEDS: diphenhydrAMINE 50 MG/ML VIAL IVP PRN ×3 (05:33→21:06)
[2020-06-01 07:00] VITALS: BP 91/50
[2020-06-01] MEDS ORDERED: hydrOXYzine 10 MG TABLET PO PRN (09:00)
[2020-06-01] MEDS ORDERED: diphenhydrAMINE HCL 25 MG CAPSULE PO PRN (09:00)
--- NOTE | 2020-06-01 09:00 | NUR ---
This Rn walked into patient's room to administer Am meds. Patient proceeded to tell this RN that her Iv fluids had become undone. This RN inspected IV line and discovered that Iv tubing had been disconnected from patient, unknown if another RN had unhooked patient from IV fluids. Changed tubing and connected patient back to fluids. Will continue to monitor and care for according to plan of care.
--- NOTE | 2020-06-01 09:00 | NUR ---
Concerns for drug seeking behavior. This morning as patient was being given her am medications this RN was observing patient as she took her pain medication. As patient got to her pain medication she grasped them in a hand and closed it in a fist and from what this RN was observing patient seemed to be pocketing pills in her hand, pretending to take the pills from the bottom side of her hand where this RN could not see clearly. Patient them laid down after this and this RN proceeded to do patient assessment. As this RN did assessment patient did not open her hand in which she had grabbed the pills with. Reported behavior to Dr. Colón. Will continue to monitor and care for according to poc.
[2020-06-01] MEDS: MULTIVITAMIN with MINERAL TABLET. PO SCH (09:29)
[2020-06-01] MEDS: FLUoxetine HCL 20 MG CAPSULE PO SCH ×2 (09:29→21:10)
[2020-06-01] MEDS: CHOLECALCIFEROL (VITAMIN D3) 1,000 UNIT TABLET PO SCH (09:30)
[2020-06-01] MEDS: PANTOPRAZOLE 40 MG TABLET.DR. PO SCH (09:30)
[2020-06-01] MEDS: ASPIRIN CHEWABLE 81 MG TABLET. PO SCH (09:30)
[2020-06-01] MEDS: oxyCODONE IR 5 MG TABLET PO PRN (09:30)
[2020-06-01] MEDS: HYDROXYUREA 500 MG CAPSULE PO SCH ×2 (09:53→21:15)
[2020-06-01] MEDS ORDERED: NALOXONE 0.4 MG/ML VIAL. IV PRN (10:00)
[2020-06-01] MEDS: MORPHINE SULFATE 30 ML IV PRN (10:41)
[2020-06-01 11:00] VITALS: BP 98/46
[2020-06-01] MEDS ORDERED: hydrOXYzine IM 50 MG/ML VIAL IM ONE (11:45)
--- NOTE | 2020-06-01 12:00 | PDOC ---
[facility] [facility] PROGRESS NOTE Date of Service DOS: DATE: 06/01/20 TIME: 11:56 Chief Complaint Chief Complaint Uncontrolled bilateral upper and lower extremity pain concerning for sickle cell anemia flare Macrocytic anemia, leukocytosis [place] due to vasomotor nephropathy Hyperbilirubinemia Mild transaminitis Drug-seeking behavior Potential narcotic abuse Admit to medicine for further management Hematology consult Continue IV fluids Continue IV pain control Continue home medications Lovenox for DVT prophylaxis Protonix GI prophylaxis ADA diet Full code Discussed with RN and SW Disposition pending hematology evaluation Surrogate decision maker is undesignated History of Present Illness History of Present Illness 34 year old -[place] female who presents to the emergency department with request for pain medication. Patient states that she is having a flareup of her sickle cell pain. She has been taking her pain medication at home with no relief of her symptoms. She states that this flareup began 3 days ago. She states that the only medication that works for her sickle cell episodes is morphine, alternated with Dilaudid and Benadryl. She denies any fever, cough, shortness of breath, abdominal pain, nausea, vomiting, or diarrhea. The patient currently rates her pain a 10 out of 10 on pain scale, she denies any alleviating or exacerbating factors. She reports that the pain is located everywhere. Patient is very short with her responses therefore the HPI is limited. At the time of my evaluation, patient continues to have the same presentation of her symptoms. She describes her bilateral leg and hand of throbbing pain. She feels like it she is having cramps in her hands or legs. Denies abdominal pain, shortness of breath, chest pain, bloody stools, jaundice, swelling. 06/01/2020 No acute events overnight. Patient seen and examined bedside. There is no changes in her pain symptoms. In the early childhood special educator it was reported by the nurse Jessi that she had observed the patient potentially pocketing her oxycodone. For this reason patient was switched to IV HOSPICE FELLOW so that she has more control of her medication delivery and there is no risk for her once she is discharged for overdosing on narcotics. The patient was not confronted with this issue at this time. Patient's chart, labs, images were reviewed and discussed with RN Vitals/I&O Vitals/I&O: Vital Signs Date Time Temp Pulse Resp B/P (MAP) Pulse Ox O2 Delivery O2 Flow Rate FiO2 9/13/20 11:12 Room Air 06/01/20 11:00 98.2 83 16 98/46 (63) 93 98.2 06/01/20 03:00 4.0 I & O 05/31/20 05/31/20 06/01/20 14:59 22:59 06:59 Intake Total 240 ml 360 ml Balance 240 ml 360 ml Physical Exam Physical Exam: GEN: No apparent distress. Alert and oriented HEENT: Normal cephalic, atraumatic, external auditory canals are patent NECK: Supple, no JVD, no thyromegaly was noted LUNGS: Bilateral crackles HEART: RRR, S1, S2 present. Peripheral pulses intact, no obvious murmurs noted ABDOMEN: Soft, nontender. Positive bowel sounds, no organomegaly, normal bowel sounds EXTREMITIES: Without clubbing, cyanosis, or edema. Pedal pulses intact. Negative Homans sign Assessment and Plan Assessmemt and Plan Problems Medical Problems: (1) Intractable pain Status: Acute Comment Review of Relevant I have reviewed the following items samia (where applicable) has been applied. Medications: Current Medications Medications (Trade) Dose Ordered Sig/Saul Route PRN Reason Start Time Stop Time Status Last Admin Dose Admin Diphenhydramine HCl (Benadryl) 25 mg 1X ONCE IVP 05/31/20 12:30 05/31/20 12:31 DC 05/31/20 12:32 Pantoprazole Sodium (Protonix) 40 mg DAILYAC PO 06/01/20 07:30 06/01/20 09:30 Enoxaparin Sodium (Lovenox 40mg Syringe) 40 mg Q24H SQ 05/31/20 21:00 05/31/20 20:43 Diphenhydramine HCl (Benadryl) 25 mg 1X ONCE IVP 05/31/20 15:00 05/31/20 15:01 DC 05/31/20 14:57 Hydroxyzine HCl (Atarax) 10 mg PRN Q6HRS PRN PO ITCHING 2ND CHOICE 06/01/20 09:00 06/01/20 10:41 Diphenhydramine HCl (Benadryl) 25 mg PRN Q4HRS PRN PO ITCHING 1ST CHOICE 06/01/20 09:00 06/01/20 09:29 Morphine Sulfate 30 ml @ 0 mls/hr CONT PRN PRN IV PER PROTOCOL 06/01/20 10:00 06/01/20 10:41 Justifications for Admission Other Justification ENA ALVARES MD Jun 01, 2020 11:59
[2020-06-01] MEDS ORDERED: diphenhydrAMINE 50 MG/ML VIAL IVP ONE (14:45)
[2020-06-01 15:00] VITALS: BP 92/49
[2020-06-01 19:00] VITALS: BP 95/48
[2020-06-01] MEDS: ENOXAPARIN 40 MG/0.4 ML SYRINGE. SQ SCH (21:08)
[2020-06-01] MEDS: traZODone 100 MG TABLET. PO SCH (21:10)
[2020-06-01] MEDS: LORazepam 0.5 MG TABLET PO PRN (22:01)
[2020-06-01 22:35] VITALS: BP 104/59
[2020-06-02 03:00] VITALS: BP 99/58
[2020-06-02] MEDS: diphenhydrAMINE 50 MG/ML VIAL IVP PRN ×4 (03:50→22:17)
[2020-06-02 07:00] VITALS: BP 113/64
[2020-06-02] MEDS: PANTOPRAZOLE 40 MG TABLET.DR. PO SCH (07:30)
[2020-06-02] MEDS: FLUoxetine HCL 20 MG CAPSULE PO SCH ×2 (09:00→20:39)
[2020-06-02] MEDS: CHOLECALCIFEROL (VITAMIN D3) 1,000 UNIT TABLET PO SCH (09:00)
[2020-06-02] MEDS: ASPIRIN CHEWABLE 81 MG TABLET. PO SCH (09:00)
[2020-06-02] MEDS: MULTIVITAMIN with MINERAL TABLET. PO SCH (09:00)
[2020-06-02] MEDS: HYDROXYUREA 500 MG CAPSULE PO SCH ×2 (09:00→20:45)
[2020-06-02 11:00] VITALS: BP 121/67
[2020-06-02] MEDS: MORPHINE SULFATE 30 ML IV PRN (11:46)
[2020-06-02 12:59] LABS: BARBITURATES NEG (NEG); BENZODIAZEPINES NEG (NEG); CANNABINOIDS NEG (NEG); COCAINE POS (NEG); METHADONE NEG (NEG); OPIATES POS (NEG); PHENCYCLIDINE NEG (NEG)
[2020-06-02 13:01] LABS: AMPHETAMINE/METHAMPHETAMINE NEG (NEG)
[2020-06-02 14:41] VITALS: BP 101/62
--- NOTE | 2020-06-02 14:53 | PDOC2 ---
CONSULT Date of Consult Date of Consult DATE: 06/02/20 TIME: 14:40 Reason for Consult Reason for Consult: Sickle cell disease with vaso-occlusive pain crisis Referring Physician Referring Physician: Dr. Colón Identification/Chief Complaint Chief Complaint Bone pains Source Source: Chart review, Patient History of Present Illness Reason for Visit: Carolyn Lizama is a 34-year-old -[place]banian female with history of sickle cell disease who has been admitted with vaso-occlusive pain crisis. Patient reports worsening of her sickle cell pain in recent days. Patient reports that she normally takes oxycodone 30 mg every 4 hours as needed for pain for outpatient management of her sickle cell disease related chronic pain. She notes that she follows with physician at [facility]'s sickle cell clinic. She does not recall their name. She reports taking 2000 mg of hydroxyurea daily. She notes having sickle cell exacerbations once to twice a month. She has previously been hospitalized at [facility] for this. She informed me that she is scheduled to begin exchange transfusions later this month. 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 She denies any recent fever, chills, chest pain, shortness of breath, nausea, vomiting. She denies any sick contacts She denies any new onset weakness or numbness Past Surgical History Past Surgical History: Total hip replacement Family History Family History: No Significant, Diabetes Social History ALCOHOL: none Drugs: None Current Problem List Problem List Problems Medical Problems: (1) Intractable pain Status: Acute Current Medications Current Medications Current Medications Diphenhydramine HCl (Benadryl) 25 mg 1X ONCE IVP Last administered on 05/30/20at 19:23; Start 05/30/20 at 19:30; Stop 05/30/20 at 19:31; Status DC Morphine Sulfate (Morphine Sulfate) 4 mg 1X ONCE IV Last administered on 05/30/20at 19:24; Start 05/30/20 at 19:30; Stop 05/30/20 at 19:31; Status DC Sodium Chloride 1,000 ml @ 1,000 mls/hr 1X ONCE IV Last administered on 05/30/20at 19:29; Start 05/30/20 at 19:30; Stop 05/30/20 at 20:29; Status DC Hydromorphone HCl (Dilaudid) 1 mg 1X ONCE IVP Last administered on 05/30/20at 20:10; Start 05/30/20 at 20:30; Stop 05/30/20 at 20:31; Status DC Hydromorphone HCl (Dilaudid) 2 mg STK-MED ONCE .ROUTE ; Start 05/30/20 at 20:06; Stop 05/30/20 at 20:07; Status DC Sodium Chloride 1,000 ml @ 100 mls/hr Q10H IV ; Start 05/30/20 at 21:00; Stop 05/31/20 at 20:59; Status Cancel Sodium Chloride 1,000 ml @ 100 mls/hr Q10H IV Last administered on 06/01/20at 21:09; Start 05/30/20 at 22:00 Ondansetron HCl (Zofran) 4 mg PRN Q4HRS PRN IV NAUSEA/VOMITING; Start 05/30/20 at 20:45 Zolpidem Tartrate (Ambien) 5 mg PRN QHS PRN PO INSOMNIA Last administered on 06/01/20at 22:01; Start 05/30/20 at 20:45 Acetaminophen (Tylenol) 650 mg PRN Q4HRS PRN PO TEMP OVER 100.4F Last administered on 06/02/20at 11:47; Start 05/30/20 at 20:45 Clonidine HCl (Catapres) 0.1 mg PRN Q6HRS PRN PO SBP>160 OR DBP>90; Start 05/30/20 at 20:45 Diphenhydramine HCl (Benadryl) 25 mg PRN Q4HRS PRN IVP ITCHING Last administered on 06/01/20at 05:33; Start 05/30/20 at 20:45; Stop 06/01/20 at 08:5 4; Status DC Docusate Sodium (Colace) 100 mg PRN BID PRN PO HARD STOOLS; Start 05/30/20 at 20:45 Albuterol Sulfate (Ventolin Neb Soln) 2.5 mg PRN Q4HRS PRN NEB SHORTNESS OF BREATH; Start 05/30/20 at 20:45 Guaifenesin (Robitussin) 200 mg PRN Q4HRS PRN PO COUGH Last administered on 05/30/20at 22:59; Start 05/30/20 at 20:45 Lorazepam (Ativan) 0.5 mg PRN Q4HRS PRN PO ANXIETY / AGITATION Last administered on 06/01/20 22:01; Start 05/30/20 at 20:45 Aspirin (Aspirin Chewable) 81 mg DAILY PO Last administered on 06/02/20at 09:00; Start 05/31/20 at 09:00 Hydroxyurea (Hydrea) 500 mg BID PO Last administered on 06/02/20 09:00; Start 05/30/20 at 21:00 Trazodone HCl (Desyrel) 100 mg QHS PO Last administered on 06/01/20at 21:10; Start 05/30/20 at 21:00 Fluoxetine HCl (PROzac) 40 mg BID PO Last administered on 06/02/20 09:00; Start 05/30/20 at 21:00 Multivitamins (Thera M Plus) 1 tab DAILY PO Last administered on 06/02/20 09:00; Start 05/31/20 at 09:00 Oxycodone HCl (Roxicodone) 20 mg PRN Q6HRS PRN PO PAIN Last administered on 06/01/20at 09:30; Start 05/30/20 at 21:00; Stop 06/01/20 at 10:09; Status DC Vitamin D (Vitamin D3) 1,000 unit DAILY PO Last administered on 06/02/20 09:00; Start 05/31/20 at 09:00 Fentanyl Citrate (Fentanyl 2ml Vial) 25 mcg PRN Q3HRS PRN IV PAIN; Start 05/30/20 at 20:45; Stop 05/30/20 at 23:18; Status DC Morphine Sulfate (Morphine Sulfate) 4 mg 1X ONCE IV Last administered on 05/30/20at 21:00; Start 05/30/20 at 21:15; Stop 05/30/20 at 21:16; Status DC Morphine Sulfate (Morphine Sulfate) 4 mg PRN Q2HR PRN IV PAIN Last administered on 06/01/20at 10:01; Start 05/31/20 at 10:30; Stop 06/01/20 at 10:19; Status DC Diphenhydramine HCl (Benadryl) 25 mg 1X ONCE IM ; Start 05/31/20 at 12:00; Stop 05/31/20 at 12:23; Status DC Diphenhydramine HCl (Benadryl) 25 mg 1X ONCE IVP Last administered on 05/31/20at 12:32; Start 05/31/20 at 12:30; Stop 05/31/20 at 12:31; Status DC Enoxaparin Sodium (Lovenox 40mg Syringe) 40 mg Q24H SQ ; Start 05/31/20 at 13:00; Stop 05/31/20 at 14:30; Status DC Pantoprazole Sodium (Protonix) 40 mg DAILYAC PO Last administered on 06/02/20at 07:30; Start 06/01/20 at 07:30 Enoxaparin Sodium (Lovenox 40mg Syringe) 40 mg Q24H SQ Last administered on 06/01/20at 21:08; Start 05/31/20 at 21:00 Diphenhydramine HCl (Benadryl) 25 mg 1X ONCE IVP Last administered on 05/31/20at 14:57; Start 05/31/20 at 15:00; Stop 05/31/20 at 15:01; Status DC Hydroxyzine HCl (Atarax) 10 mg PRN Q6HRS PRN PO ITCHING 2ND CHOICE Last administered on 06/01/20at 10:41; Start 06/01/20 at 09:00; Stop 06/01/20 at 14:52; Status DC Diphenhydramine HCl (Benadryl) 25 mg PRN Q4HRS PRN PO ITCHING 1ST CHOICE Last administered on 06/01/20at 09:29; Start 06/01/20 at 09:00; Stop 06/01/20 at 14:52; Status DC Naloxone HCl (Narcan) 0.4 mg PRN Q2MIN PRN IV SEE INSTRUCTIONS; Start 06/01/20 at 10:00 Sodium Chloride 1,000 ml @ 25 mls/hr Q24H IV ; Start 06/01/20 at 09:53 Morphine Sulfate 30 ml @ 0 mls/hr CONT PRN PRN IV PER PROTOCOL Last administered on 06/02/20at 11:46; Start 06/01/20 at 10:00 Hydroxyzine HCl (Vistaril Im) 25 mg 1X ONCE IM Last administered on 06/01/20at 12:29; Start 06/01/20 at 11:45; Stop 06/01/20 at 11:46; Status DC Diphenhydramine HCl (Benadryl) 50 mg PRN Q6HRS ONCE IVP ; Start 06/01/20 at 14:45; Stop 06/01/20 at 14:46; Status Cancel Diphenhydramine HCl (Benadryl) 50 mg PRN Q6HRS PRN IVP ITCHING Last administered on 06/02/20at 10:04; Start 06/01/20 at 15:00 Active Scripts Active Oxycodone Hcl 20 Mg Tablet 20 Mg PO Q6HRS PRN 5 Days Reported Prozac (Fluoxetine Hcl) 40 Mg Capsule 1 Cap PO BID Trazodone Hcl 100 Mg Tablet 1 Tab PO QHS D3 + K2 Dots 1,000 Units Tab (Vitamin D3/Vitamin K2) 1 Each Tab.rapdis 1 Tab PO DAILY 30 Days One-Daily Multi-Vitamin (Multivitamin) 1 Each Tablet 1 Tab PO DAILY 30 Days Children's Aspirin (Aspirin) 81 Mg Tab.chew 1 Tab PO DAILY 30 Days Hydroxyurea 500 Mg Capsule 500 Mg PO BID Allergies Allergies: Coded Allergies: fentanyl (Verified Allergy, Severe, Swelling, 05/30/20) "tongue swells up" "hives" latex (Verified Allergy, Intermediate, RIPS SKIN OFF, 05/30/20) adhesive tape (Verified Allergy, Mild, 05/30/20) ROS General: No: Chills, Night Sweats PSYCHOLOGICAL ROS: No: Anxiety, Behavioral Disorder Eyes: No Blurry vision, No Decreased vision HEENT: No: Heacaches, Visual Changes ALLERGY AND IMMUNOLOGY: No: Nasal Congestion, Post Nasal Drip Hematological and Lymphatic: No: Brusing, Night Sweats ENDOCRINE: YES: Malaise/lethargy; No: Mood Swings Respiratory: No: Cough, Hemoptysis Cardiovascular: No Chest Pain, No Palpitations Gastrointestinal: No Vomiting Genitourinary: No Dysuria Musculoskeletal: Yes Joint Pain Neurological: No Dizziness Skin: No Dry Skin Physical Exam General: Alert, Oriented X3 HEENT: Atraumatic Lungs: Clear to auscultation Heart: Normal S1 Abdomen: Normal bowel sounds Extremities: No clubbing Skin: No rashes Neuro: Normal gait Psych/Mental Status: Mental status NL MUSCULOSKELETAL: No joint tenderness Vitals VITALS Vital Signs Date Time Temp Pulse Resp B/P (MAP) Pulse Ox O2 Delivery O2 Flow Rate FiO2 9/14/20 11:46 19 94 Room Air 06/02/20 11:00 98.7 80 121/67 (85) 98.7 Labs Labs Laboratory Tests Test 06/02/20 08:05 06/02/20 09:35 Iron Level 169 ug/dL (50-170) Total Iron Binding Capacity 174 ug/dL (250-450) Iron Saturation 97 % (15-34) Lactate Dehydrogenase 528 U/L (81-234) Vitamin B12 Level 382 pg/mL (247-911) Urine Opiates Screen Pos (NEG) Urine Methadone Screen Neg (NEG) Urine Barbiturates Neg (NEG) Urine Phencyclidine Screen Neg (NEG) Urine Amphetamine/Methamphetamine Neg (NEG) Urine Benzodiazepines Screen Neg (NEG) Urine Cocaine Screen Pos (NEG) Urine Cannabinoids Screen Neg (NEG) Urine Ethyl Alcohol Neg (NEG) Laboratory Tests Test 06/02/20 08:05 06/02/20 09:35 Iron Level 169 ug/dL (50-170) Total Iron Binding Capacity 174 ug/dL (250-450) Iron Saturation 97 % (15-34) Lactate Dehydrogenase 528 U/L (81-234) Vitamin B12 Level 382 pg/mL (247-911) Urine Opiates Screen Pos (NEG) Urine Methadone Screen Neg (NEG) Urine Barbiturates Neg (NEG) Urine Phencyclidine Screen Neg (NEG) Urine Amphetamine/Methamphetamine Neg (NEG) Urine Benzodiazepines Screen Neg (NEG) Urine Cocaine Screen Pos (NEG) Urine Cannabinoids Screen Neg (NEG) Urine Ethyl Alcohol Neg (NEG) Assessment/Plan Assessment/Plan Assessment Sickle cell disease, with vaso-occlusive pain crisis Acute on chronic pain Macrocytosis, secondary to hydroxyurea usage Recommendations: -I recommended and check B12, LDH, reticulocyte count and iron studies. Consistent with sickle cell disease with acute vaso-occlusive crisis -Continue with pain management for sickle cell vaso-occlusive pain crisis -Continue with IV fluids -Continue with supplemental oxygen as needed -Encourage patient to increase physical activity as tolerated -Recommend bowel regimen given opiate use -Continue with outpatient follow-up with [facility]. She is planning on being exchange transfusion soon. -Can continue hydroxyurea at home dosage while inpatient Kofi Thrasher MD Medical Oncology/Hematology Ph: [phone] ZOEY THRASHER MD Jun 02, 2020 14:53
--- NOTE | 2020-06-02 16:31 | NUR ---
SW following. Spoke with RN and reviewed chart. Pt from home and currently on IV pain medications, room air, and a regular diet. Pt will likely discharge home today. No SW needs identified for discharge.
--- NOTE | 2020-06-02 17:39 | PDOC ---
[employer] PROGRESS NOTE Date of Service DOS: DATE: 06/02/20 TIME: 17:37 Chief Complaint Chief Complaint Uncontrolled bilateral upper and lower extremity pain concerning for sickle cell anemia flare Macrocytic anemia, leukocytosis [place] due to vasomotor nephropathy Hyperbilirubinemia Mild transaminitis Drug-seeking behavior Potential narcotic abuse 06/02/2020 Patient evaluated bedside, resting comfortably. She reports pain all over but cannot be more specific. She is asking for an increase in her pain medication, unable to tell me her exact home regimen. Continue with IV hydration. Discussed with RN, discussed with hematology. History of Present Illness History of Present Illness 34 year old -Ang[place] female who presents to the emergency department with request for pain medication. Patient states that she is having a flareup of her sickle cell pain. She has been taking her pain medication at home with no relief of her symptoms. She states that this flareup began 3 days ago. She states that the only medication that works for her sickle cell episodes is morphine, alternated with Dilaudid and Benadryl. She denies any fever, cough, shortness of breath, abdominal pain, nausea, vomiting, or diarrhea. The patient currently rates her pain a 10 out of 10 on pain scale, she denies any alleviating or exacerbating factors. She reports that the pain is located everywhere. Patient is very short with her responses therefore the HPI is limited. At the time of my evaluation, patient continues to have the same presentation of her symptoms. She describes her bilateral leg and hand of throbbing pain. She feels like it she is having cramps in her hands or legs. Denies abdominal pain, shortness of breath, chest pain, bloody stools, jaundice, swelling. 06/01/2020 No acute events overnight. Patient seen and examined bedside. There is no changes in her pain symptoms. In the parts counter clerk it was reported by the nurse Jessi that she had observed the patient potentially pocketing her oxycodone. For this reason patient was switched to IV SECURITY TESTER so that she has more control of her medication delivery and there is no risk for her once she is discharged for overdosing on narcotics. The patient was not confronted with this issue at this time. Patient's chart, labs, images were reviewed and discussed with RN Vitals/I&O Vitals/I&O: Vital Signs Date Time Temp Pulse Resp B/P (MAP) Pulse Ox O2 Delivery O2 Flow Rate FiO2 06/02/20 14:41 98.3 73 20 101/62 (75) 93 Room Air 98.3 I & O 06/01/20 06/01/20 06/02/20 15:00 23:00 07:00 Intake Total 240 ml 360 ml Balance 240 ml 360 ml Physical Exam Physical Exam: GEN: No apparent distress. Alert and oriented HEENT: Normal cephalic, atraumatic, external auditory canals are patent NECK: Supple, no JVD, no thyromegaly was noted LUNGS: Bilateral crackles HEART: RRR, S1, S2 present. Peripheral pulses intact, no obvious murmurs noted ABDOMEN: Soft, nontender. Positive bowel sounds, no organomegaly, normal bowel sounds EXTREMITIES: Without clubbing, cyanosis, or edema. Pedal pulses intact. Negat candice Homans sign General: Alert, Oriented X3 Heart: Normal S1 Abdomen: Normal bowel sounds Extremities: No clubbing Skin: No rashes Labs Labs: Laboratory Tests Test 06/02/20 08:05 06/02/20 09:35 Iron Level 169 ug/dL (50-170) Total Iron Binding Capacity 174 ug/dL (250-450) Iron Saturation 97 % (15-34) Lactate Dehydrogenase 528 U/L (81-234) Vitamin B12 Level 382 pg/mL (247-911) Urine Opiates Screen Pos (NEG) Urine Methadone Screen Neg (NEG) Urine Barbiturates Neg (NEG) Urine Phencyclidine Screen Neg (NEG) Urine Amphetamine/Methamphetamine Neg (NEG) Urine Benzodiazepines Screen Neg (NEG) Urine Cocaine Screen Pos (NEG) Urine Cannabinoids Screen Neg (NEG) Urine Ethyl Alcohol Neg (NEG) Assessment and Plan Assessmemt and Plan Problems Medical Problems: (1) Intractable pain Status: Acute Comment Review of Relevant I have reviewed the following items samia (where applicable) has been applied. Justifications for Admission Other Justification ULYSSES DANIEL MD Jun 02, 2020 17:39
[2020-06-02 19:00] VITALS: BP 115/71
[2020-06-02] MEDS: IV NORMAL SALINE 1000ML BAG 1,000 ML IV SCH ×3 (20:38→22:17)
[2020-06-02] MEDS: ENOXAPARIN 40 MG/0.4 ML SYRINGE. SQ SCH (20:39)
[2020-06-02] MEDS: LORazepam 0.5 MG TABLET PO PRN (20:39)
[2020-06-02] MEDS: traZODone 100 MG TABLET. PO SCH (20:40)
[2020-06-02] MEDS: DOCUSATE SODIUM 100 MG CAPSULE. PO SCH (20:40)
[2020-06-02 23:00] VITALS: BP 96/54
[2020-06-03] MEDS: MORPHINE SULFATE 30 ML IV PRN (01:18)
[2020-06-03 03:00] VITALS: BP 98/62
[2020-06-03] MEDS: IV NORMAL SALINE 1000ML BAG 1,000 ML IV SCH (04:01)
[2020-06-03] MEDS: diphenhydrAMINE 50 MG/ML VIAL IVP PRN (04:01)
--- NOTE | 2020-06-03 06:39 | NUR ---
Nurse assigned called to ask for assistance starting another IV on this patient. Kelli Vera attempted x 2 and was unsuccessful. Pt was difficult to arouse and would not answer any questions, just turn her head to the left side and close her eyes. RN assigned was updated. When returning to the room, Kelli Vera found a visitor who stated he was her friend sitting in the lounge chair in the corner of the patient's room. He stated he had been here all night since 6:30 PM. Nurse assigned stated she had not seen him all night on the unit. He was escorted by the Kelli Vera to the ER waiting room to await appropriate visiting hours. He was updated on the need to obtain permission to stay overnight in a patient's room.
--- NOTE | 2020-06-03 07:17 | NUR ---
Around 0615 the correctional supervisor lieutenant and I both saw a visitor I the pts. room outside of visiting hours sitting in the chair. The correctional supervisor lieutenant asked him how long has he been there and he said since 6:30 pm. Then she asked him where was he at and he said that he had been sleeping on the floor. Both the correctional supervisor lieutenant and I and several other nurses had been in and out of her room and we had not seen him all night. When I went to start a new IV I did see blankets and a pillow on the floor. i thought she had put them there b/c she was too cold. Earlier that night she asked me what her urine test showed and I told her it said it was + for Opiates and cocaine. She said that she doesn't know how it got there and that "They put anything in your drink."It is suspected that visitors may be bringing it in to her so I called Dr. Murphy and he said no visitors. He did not want a repeat UA b/c it would still show the same thing. I notified security about having no visitors.
[2020-06-03 07:27] VITALS: BP 108/66
--- NOTE | 2020-06-03 09:30 | NUR ---
PATIENT ALERT AND VERBALLY RESPONSIVE WITH COMPLAINTS OF PAIN AND WANTS TO HAVE HER IV RESTARTED DISPITE SEVERAL UNSUCCESSFUL ATTEMPTS AT RESTARTING HER IV DURING THE NIGHT, THIS SUB ACUTE CARE NURSE INFORMED THE PATIENT THAT I WOULD NOTIFY THE MD TO SEE IF HE WOULD ORDER PO. PAIN MEDICATIONS, PATIENT STATES "I NEED MY IV RESTARTED, THE PO. PAIN MEDS WON'T WORK, I KNOW THAT THERE IS SOMEBODY IN THIS HOSPITAL THAT CAN START A IV"., "IF NOT I CAN JUST LEAVE AMA" THIS SUB ACUTE CARE NURSE ENCOURAGED THE PATIENT TO WAIT UNTIL I HEAR FROM THE MD.
[2020-06-03] MEDS: FLUoxetine HCL 20 MG CAPSULE PO SCH (10:36)
[2020-06-03] MEDS: CHOLECALCIFEROL (VITAMIN D3) 1,000 UNIT TABLET PO SCH (10:36)
[2020-06-03] MEDS: ASPIRIN CHEWABLE 81 MG TABLET. PO SCH (10:36)
[2020-06-03] MEDS: MULTIVITAMIN with MINERAL TABLET. PO SCH (10:36)
[2020-06-03] MEDS: PANTOPRAZOLE 40 MG TABLET.DR. PO SCH (10:37)
[2020-06-03] MEDS: DOCUSATE SODIUM 100 MG CAPSULE. PO SCH (10:37)
[2020-06-03] MEDS: HYDROXYUREA 500 MG CAPSULE PO SCH (10:40)
[2020-06-03 11:22] VITALS: BP 131/56
--- NOTE | 2020-06-03 13:43 | NUR ---
PATIENT LEAVES THE UNIT PER W/C AND ALONGSIDE SECURITY AND SAUTE CHEF SHE IS LEAVING AMA AND HAS SIGNED THE AMA FORM, PERSONAL BELONGINGS GATHERED BY THE PATIENT AND PLACED IN BAGS FOR DISCHARGE PRIOR TO LEAVING THE UNIT.
--- NOTE | 2020-06-03 16:56 | NUR ---
SW following. Spoke with RN and reviewed chart. SW consulted for frequent admissions. Pt left AMA today. No further SW needs.
== END 2020-06-03 13:43 | disposition left against medical advice (07) | DRG 683 ==
LOC: ER 17:15 → 5 NORTH 21:39 → OBSVTOIN 05-31 23:20
PROVIDERS: ADMIT Internal Medicine; ATTEND Internal Medicine
DX: N17.0 Acute kidney failure with tubular necrosis (principal); R17 Unspecified jaundice; D75.89 Other specified diseases of blood and blood-forming organs; G89.29 Other chronic pain; Z76.5 Malingerer [conscious simulation]; Z83.3 Family history of diabetes mellitus; Z86.73 Personal history of transient ischemic attack (TIA), and cerebral infarction without residual deficits; Z96.649 Presence of unspecified artificial hip joint; Z53.29 Procedure and treatment not carried out because of patient's decision for other reasons; R74.0 Nonspecific elevation of levels of transaminase and lactic acid dehydrogenase [LDH]; Z88.8 Allergy status to other drugs, medicaments and biological substances; Z91.040 Latex allergy status; D57.1 Sickle-cell disease without crisis
CPT/HCPCS: 36415; 80053; 80307; 82607; 83540; 83550; 83615; 85007; 85025; 85045; 94760; 96361; 96374; 96375; 96376; G0378; G0379; J1170; J1200; J1650; J2270; J3410; J7030; 99285-25; Q0163

== ENCOUNTER 2020-06-15 22:48 | Emergency (ER) | payer MEDICARE, MEDICAID ==
[~2020-06-15] VITALS: Ht 162.6 cm; Wt 52.3 kg
--- NOTE | 2020-06-15 23:30 | PHYS DOC ---
Past Medical History Past Medical History: Sickle Cell Disease, Stroke Additional Past Medical Histor: HIP REPLACEMENT X2, ACUTE CHEST SYNDROME Past Surgical History: Hip Replacement Additional Past Surgical Histo: brain shunt, hip replacement x 2 Smoking Status: Never Smoker Alcohol Use: None General Adult EDM: Chief Complaint: MULTIPLE COMPLAINTS HPI: HPI: Patient is a 34 year old female with a past medical history of sickle cell presents with the chief complaint of pain. She states she has had pain for the last 2-3 days ONLY. Patient states she has a headache that is killing her. States she is having leg pain. Patient told nursing that she is hurting everywhere-- but primarily in her back. Patient states she takes oxycodone 20mg-- but the pain medication has not been working. When I asked patient where she normally goes for her sickle cell she told me [facility] and [facility]. When I asked her if she has been anywhere recently she stated that she has just been seen last night at [facility]-- they gave her a shot and sent her home. Review of [facility] records Patient was admitted and hospitalized here at [facility] 05/30-06-02. I had seen in previous record that patient stated she gets her normal care [place] [facility] In reviewed of [facility] [place] patient has had numerous recent visits to [facility] which she failed to tell me about. 06/03 06/08 06/10 x 2 06/11 06/12 Patient admitted to also going to [facility] only after questioning her. Patient states she just moved to [facility]. Review of Systems: Review of Systems: Constitutional: Denies fever or chills. [] Eyes: Denies change in visual acuity. [] HENT: Denies nasal congestion or sore throat. [] Respiratory: Denies cough or shortness of breath. [] Cardiovascular: Denies chest pain or edema. [] GI: Denies abdominal pain, nausea, vomiting, bloody stools or diarrhea. [] : Denies dysuria. [] Musculoskeletal: positive back pain or joint pain. [] Integument: Denies rash. [] Neurologic: positive headache Endocrine: Denies polyuria or polydipsia. [] Lymphatic: Denies swollen glands. [] Psychiatric: Denies depression or anxiety. [] Heart Score: Risk Factors: Risk Factors: DM, Current or recent (<one month) smoker, HTN, HLP, family history of CAD, obesity. Risk Scores: Score 0 - 3: 2.5% MACE over next 6 weeks - Discharge Home Score 4 - 6: 20.3% MACE over next 6 weeks - Admit for Clinical Observation Score 7 - 10: 72.7% MACE over next 6 weeks - Early Invasive Strategies Allergies: Allergies: Allergies Coded Allergies Type Severity Reaction Last Updated Verified fentanyl Allergy Severe Swelling 05/30/20 Yes latex Allergy Intermediate RIPS SKIN OFF 05/30/20 Yes adhesive tape Allergy Mild 05/30/20 Yes Physical Exam: PE: Constitutional: Well developed, well nourished, no acute distress, non-toxic appearance. [] HENT: Normocephalic, atraumatic, bilateral external ears normal, oropharynx moist, no oral exudates, nose normal. [] Eyes: PERRLA, EOMI, conjunctiva normal, no discharge. [] Neck: Normal range of motion, no tenderness, supple, no stridor. [] Cardiovascular:Heart rate regular rhythm, no murmur [] Lungs & Thorax: Bilateral breath sounds clear to auscultation [] Abdomen: Bowel sounds normal, soft, no tenderness, no masses, no pulsatile masses. [] Skin: Warm, dry, no erythema, no rash. [] Back: No tenderness, no CVA tenderness. [] Extremities: No tenderness, no cyanosis, no clubbing, ROM intact, no edema. [] Neurologic: Alert and oriented X 3, normal motor function, normal sensory function, no focal deficits noted. [] Psychologic: Affect normal, judgement normal, mood normal. [] EKG: EKG: [] Radiology/Procedures: Radiology/Procedures: [] Course & Med Decision Making: Course & Med Decision Making Pertinent Labs and Imaging studies reviewed. (See chart for details) []Treated with single dose of dilaudid 1mg. Patient vital signs stable. Patient appears in no acute distress. Patient discharged home with instructions to follow up with her PCP. Jannet Disclaimer: Jannet Disclaimer: This electronic medical record was generated, in whole or in part, using a voice recognition dictation system. Departure Departure Impression: Primary Impression: Sickle cell syndrome Additional Impressions: Opiate dependence Chronic pain Disposition: HOME, SELF-CARE Condition: STABLE Referrals: NO PCP (PCP) Patient Instructions: Opiate Dependence, Sickle Cell Pain Crisis Justicifation of Admission Dx: Justifications for Admission: Justification of Admission Dx: Yes JULIET KIMBALL I DO Jun 15, 2020 23:30
[2020-06-15] MEDS ORDERED: HYDROmorphone 2 MG/ML VIAL IM ONE (23:45)
[2020-06-15 23:46] VITALS: BP 110/81
== END 2020-06-15 23:46 | disposition home or self-care (01) ==
LOC: ER 22:48
DX: E87.1 Hypo-osmolality and hyponatremia (principal); F11.20 Opioid dependence, uncomplicated; G89.29 Other chronic pain; M54.9 Dorsalgia, unspecified; I25.2 Old myocardial infarction; Z98.890 Other specified postprocedural states; Z91.040 Latex allergy status; Z88.8 Allergy status to other drugs, medicaments and biological substances
CPT/HCPCS: 96372; 99283; J1170